=== PATIENT | female | born 2000 | race Caucasian/White ===

== ENCOUNTER 2024-01-25 07:05 | Inpatient (IN) | payer BC, MEDICAID, SELFPAY ==
[2024-01-25] VITALS (54 sets, daily range): BP systolic 103–136; BP diastolic 53–78; PULSE 69–99; RESP 16–18; TEMP 36.2–37.4; O2SAT 98–100; BMI 28.4
--- OUTSIDE RECORDS SUMMARY | 2024-01-25 07:19 | XMS RPT_ITS | CCD ---
Author Name Unknown Address [id number] [place] [address] Organization [facility] Care Team Providers Care Patient Relations Specialist Name Role Phone OLIVIA GREENE M.D. Unavailable Unavailabl e LILIBETH, [facility] Primary Care Unavailable CAR HERNANDEZ Attending Unavailable LILIBETH, [facility] Primary Care Unavailable KUCHTA, GIO Referring Unavailable KUCHTA, GIO Attending Unavailable LILIBETH, [facility] Primary Care Unavailable KUCHTA, GIO Referring Unavailable KUCHTA, GIO Attending Unavailable LILIBETH, [facility] Primary Care Unavailable WOODY CARRANZA Attending Unavailable LILIBETH, [facility] Primary Care Unavailable KUCHTA, GIO Attending Unavailable KUCHTA, GIO Referring Unavailable LILIBETH, [facility] Primary Care Unavailable BALBINA ESQUEDA Attending Unavailable LILIBETH, [facility] Primary Care Unavailable KELLEY MONSON Attending Unavailable LILIBETH, [facility] Primary Care Unavailable KUCHTA, GIO Referring Unavailable KUCHTA, IGO Attending Unavailable LILIBETH, [facility] Primary Care Unavailable WOODY CARRANZA Attending Unavailable LILIBETH, [facility] Primary Care Unavailable KUCHTA, GIO Attending Unavailable KUCHTA, GIO Referring Unavailable LILIBETH, JEANNETTE AIMEE Primary Care Unavailable KUCHTA, GIO Referring Unavailable KUCHTA, GIO Attending Unavailable LILIBETH, [facility] Primary Care Unavailable CECY RILEY Attending Unavailable LILIBETH, [facility] Primary Care Unavailable KUCHTA, GIO Attending Unavailable KUCHTA, GIO Admitting Unavailable LILIBETH, JEANNETTE AIMEE Primary Care Unavailable KUCHTA, GIO Referring Unavailable KUCHTA, GIO Attending Unavailable Jabari BLOOM, Yahir Young Primary Care Provider Yahir Hdz MD Primary Care Provider Yahir Hdz MD R Primary Care Provider Jabari BLOOM, Yahir R Primary Care Provider YAHIR HDZ R Primary Care Unavailable CANDIDA CRUZ Attending Unavailable SELF Referring Unavailable KONTAK, YAHIR R Primary Care Unavailable WARREN PINEDA Attending Unavailable KONTAK, YAHIR R Primary Care Unavailable WISWELL, BALBINA Attending Unavailable KONTAK, YAHIR R Primary Care Unavailable WISWELL, BALBINA Attending Unavailable WISWELL, BALBINA Referring Unavailable KONTAK, YAHIR R Primary Care Unavailable WISWELL, BALBINA Referring Unavailable KONTAK, YAHIR R Primary Care Unavailable KONTAK, YAHIR R Primary Care Unavailable GEORGE SCHWARTZ Referring Unavailable KONTAK, YAHIR R Primary Care Unavailable GEORGE SCHWARTZ Attending Unavailable KONTAK, YAHIR R Primary Care Unavailable DOMINGO BALLESTEROS Attending Unavail able KONTAK, YAHIR R Primary Care Unavailable WISWELL, BALBINA Referring Unavailable TEMITOPE VALE Attending Unavailable KONTAK, YAHIR R Primary Care Unavailable KONTAK, YAHIR R Primary Care Unavailable GEORGE SCHWARTZ Attending Unavailable KONTAK, YAHIR R Primary Care Unavailable WISWELL, BALBINA Referring Unavailable KONTAK, YAHIR R Primary Care Unavailable CHELSI CROWE Attending Unavailable KONTAK, YAHIR R Primary Care Unavailable WISWELL, BALBINA Attending Unavailable KONTAK, YAHIR R Primary Care Unavailable WISWELL, BALBINA Referring Unavailable LEILA MCKINNON Attending Unavailable KONTAK, YAHIR R Primary Care Unavailable WISWELL, BALBINA Referring Unavailable KONTAK, YAHIR R Primary Care Unavailable LEILA MCKINNON Attending Unavailable WISWELL, BALBINA Referring Unavailable KONTAK, YAHIR R Primary Care Unavailable WISWELL, BALBINA Referring Unavailable KONTAK, YAHIR R Primary Care Unavailable KONTAK, YAHIR R Primary Care Unavailable GEORGE SCHWARTZ Referring Unavailable LEILA MCKINNON Referring Unavailable KONTAK, YAHIR R Primary Care Unavailable WISWELL, BALBINA Referring Unavailable KONTAK, YAHIR R Primary Care Unavailable KONTAK, YAHIR R Primary Care Unavailable WISWELL, BALBINA Attending Unavailable WISWELL, BALBINA Referring Unavailable Medications Current Medications Medication Drug Class(es) Dates Sig (Normalized) Sig (Original) amoxicillin 875 mg oral tablet (1 source) Penicillin-class Antibacterial Start: 12-27-2023 End: 01-06-2024 take 1 tablet by mouth every twelve hours amoxicillin (AMOXIL) 875 mg tablet Indications: Pharyngitis, unspecified etiology Take 1 tablet by mouth every 12 hours for 10 days. 20 tablet 0 12/27/2023 01/06/2024 Active Completed/Discontinued Medications Medication Drug Class(es) Dates Sig (Normalized) Sig (Original) aspirin 81 mg delayed release oral tablet (15 sources) Platelet Aggregation Inhibitor, Nonsteroidal Anti-inflammatory Drug Start: 11-12-2023 take 1 tablet by mouth once daily aspirin, enteric coated (ASPIRIN, ENTERIC COATED) 81 mg EC tablet Take 1 tablet by mouth once daily. 100 tablet 2 11/12/2023 Active Problems Active Problems Problem Classification Problem Date Documented Date Episodic/Chronic Adjustment disorders (20 sources) Adjustment disorder with anxious mood; Translations: [Adjustment disorder with anxiety] Onset: 07-02-2022 Chronic Fever of unknown origin (1 source) Fever Onset: 04-19-2018 Episodic Immunizations and screening for infectious disease (1 source) Patient encounter status; Translations: [Encounter for immunization] Episodic Menstrual disorders (1 source) Irregular menstruation, unspecified Onset: 05-17-2018 Chronic Other complications of (7 sources) High risk ; Translations: [Supervision of other high risk pregnancies, third trimester] Onset: 12-01-2023 12-01-2023 Episodic Other complications of (1 source) Uterine size for dates discrepancy; Translations: [Uterine size-date discrepancy, third trimester] 01-07-2024 Episodic Other lower respiratory disease (1 source) Cough; Translations: [Acute cough] 09-03-2023 Episodic Other and delivery including normal (8 sources) Encounter for routine follow-up; Translations: [Encounter for supervision of normal , unspecified, unspecified trimester] Onset: 09-10-2017 07-23-2023 Episodic Other screening for suspected conditions (not mental disorders or infectious disease) (4 sources) Encounter for test, result negative; Translations: [Patient encounter status] Onset: 04-07-2018 07-23-2023 Episodic Other upper respiratory infections (4 sources) Acute sinusitis; Translations: [Acute sinusitis, unspecified] Onset: 09-03-2023 09-03-2023 Episodic Otitis media and related conditions (2 sources) Dysfunction of bilateral eustachian tubes; Translations: [Unspecified Eustachian tube disorder, bilateral] Onset: 12-27-2023 12-27-2023 Episodic Residual codes; unclassified (2 sources) Insomnia; Translations: [Insomnia, unspecified] Episodic Residual codes; unclassified (1 source) Gestation period, 7 weeks; Translations: [Less than 8 weeks gestation of ] 06-19-2023 Episodic Residual codes; unclassified (2 sources) Gestation period, 12 weeks; Translations: [12 weeks gestation of ] 07-23-2023 Episodic Residual codes; unclassified (1 source) Gestation period, 16 weeks; Translations: [16 weeks gestation of ] 08-21-2023 Episodic Residual codes; unclassified (1 source) Gestation period, 21 weeks; Translations: [21 weeks gestation of ] 09-21-2023 Episodic Residual codes; unclassified (1 source) Gestation period, 24 weeks; Translations: [24 weeks gestation of ] 10-14-2023 Episodic Residual codes; unclassified (1 source) Treatment not available; Translations: [Procedure and treatment not carried out for other reasons] 12-27-2023 Episodic Residual codes; unclassified (2 sources) Gestation period, 36 weeks; Translations: [36 weeks gestation of ] 01-07-2024 Episodic Residual codes; unclassified (1 source) 33 weeks gestation of ; Translations: [33 weeks gestation of ] Onset: 01-07-2024 Episodic Residual codes; unclassified (1 source) 31 weeks gestation of ; Translations: [31 weeks gestation of ] Onset: 12-17-2023 Episodic Residual codes; unclassified (1 source) 21 weeks gestation of ; Translations: [21 weeks gestation of ] Onset: 10-14-2023 Episodic Residual codes; unclassified (1 source) Gestation period, 38 weeks; Translations: [38 weeks gestation of ] 01-19-2024 Episodic Unclassified (1 source) Unknown / UNK(Unknown) Onset: 04-19-2018 Unclassified (1 source) 38 weeks gestation of Onset: 02-03-2018 Unclassified (1 source) Encounter for insertion of intrauterine contraceptive device Onset: 04-07-2018 Unclassified (1 source) Scheduled Induction Onset: 02-08-2018 Unclassified (1 source) Maternal care for other known or suspected poor growth, third trimester, not applicable or unspecified Onset: 02-03-2018 Unclassified (1 source) False labor before 37 completed weeks of gestation, third trimester Onset: 11-30-2017 Unclassified (1 source) Acute cough; Translations: [Acute cough] Onset: 09-03-2023 Viral infection (1 source) Disease caused by 2019-nCoV; Translations: [COVID-19] Episodic Past or Other Problems Problem Classification Problem Date Documented Date Episodic/Chronic Abdominal pain (1 source) Left lower quadrant pain Onset: 09-15-2018 Episodic Contraceptive and procreative management (19 sources) Presence of (intrauterine) contraceptive device; Translations: [Patient encounter status] Onset: 09-15-2018 Episodic Other complications of (19 sources) High risk due to history of labor; Translations: [Supervision of with history of pre-term labor, unspecified trimester] Onset: 06-11-2023 06-11-2023 Episodic Residual codes; unclassified (1 source) 16 weeks gestation of ; Translations: [16 weeks gestation of ] Onset: 08-21-2023 Episodic Residual codes; unclassified (1 source) 8 weeks gestation of ; Translations: [8 weeks gestation of ] Onset: 06-18-2023 Episodic Results Test Name Value Interpretation Reference Range Facil ity Vital Signs Date Time Vital Sign Value Performing Clinician García ibrahim 01-19-2024 11:53-0500 Body weight 83.73 kg Leila Mckinnon MD Work Phone: [facility] 01-19-2024 11:53-0500 Diastolic blood pressure 70 mm[Hg] Leila Mckinnon MD Work Phone: [facility] 01-19-2024 11:53-0500 Systolic blood pressure 106 mm[Hg] Leila Mckinnon MD Work Phone: [facility] 01-07-2024 14:27-0500 Body weight 84.82 kg Chelsi Crowe APRN.CNM Work Phone: [facility] 01-07-2024 14:27-0500 Diastolic blood pressure 64 mm[Hg] Chelsi Crowe APRN.CNM Work Phone: [facility] 01-07-2024 14:27-0500 Systolic blood pressure 100 mm[Hg] Chelsi Crowe APRN.CNM Work Phone: [facility] 12-27-2023 15:47-0500 Body temperature 98.2 [degF] Warren Pineda DO Work Phone: [facility] 12-27-2023 15:47-0500 Body weight 82.56 kg Warren Pineda DO Work Phone: [facility] 12-27-2023 15:47-0500 Diastolic blood pressure 64 mm[Hg] Warren Pineda DO Work Phone: [facility] 12-27-2023 15:47-0500 Heart rate 86 /min Warren Pineda DO Work Phone: [facility] 12-27-2023 15:47-0500 Respiratory rate 16 /min Warren Pineda DO Work Phone: [facility] 12-27-2023 15:47-0500 SaO2% (BldA) [Mass fraction] 100 % Warrenedyta Pineda DO Work Phone: [facility] 12-27-2023 15:47-0500 Systolic blood pressure 124 mm[Hg] Warren Pineda DO Work Phone: [facility] 10-14-2023 15:41-0500 Body weight 81.65 kg George Schwartz APRN.CNM Work Phone: [facility] 10-14-2023 15:41-0500 Diastolic blood pressure 62 mm[Hg] George Schwartz APRN.CNM Work Phone: [facility] 10-14-2023 15:41-0500 Systolic blood pressure 108 mm[Hg] George Schwartz APRN.CNM Work Phone: [facility] 09-21-2023 10:30-0400 Body weight 82.56 kg Balbina Ghosh MD Work Phone: [facility] 09-21-2023 10:30-0400 Diastolic blood pressure 72 mm[Hg] Balbina Ghosh MD Work Phone: [facility] 09-21-2023 10:30-0400 Systolic blood pressure 120 mm[Hg] Balbina Ghosh MD Work Phone: [facility] 09-03-2023 09:22-0400 Body temperature 97.3 [degF] Candidaofe Cruz SCHOOL ADMINISTRATOR.SUPERVISOR TELEPHONE ANSWERING SERVICE Work Phone: [facility] 09-03-2023 09:22-0400 Body weight 81.19 kg Candidaofe Cruz SCHOOL ADMINISTRATOR.SUPERVISOR TELEPHONE ANSWERING SERVICE Work Phone: [facility] 09-03-2023 09:22-0400 Diastolic blood pressure 68 mm[Hg] Candidaofe Cruz SCHOOL ADMINISTRATOR.SUPERVISOR TELEPHONE ANSWERING SERVICE Work Phone: [facility] 09-03-2023 09:22-0400 Heart rate 98 /min Candida Cruz SCHOOL ADMINISTRATOR.SUPERVISOR TELEPHONE ANSWERING SERVICE Work Phone: [facility] 09-03-2023 09:22-0400 Respiratory rate 18 /min Candida Cruz SCHOOL ADMINISTRATOR.SUPERVISOR TELEPHONE ANSWERING SERVICE Work Phone: [facility] 09-03-2023 09:22-0400 SaO2% (BldA) [Mass fraction] 98 % Candidaofe Cruz SCHOOL ADMINISTRATOR.SUPERVISOR TELEPHONE ANSWERING SERVICE Work Phone: [facility] 09-03-2023 09:22-0400 Systolic blood pressure 143 mm[Hg] Candidaofe Cruz SCHOOL ADMINISTRATOR.SUPERVISOR TELEPHONE ANSWERING SERVICE Work Phone: [facility] 08-21-2023 10:39-0400 Body weight 80.74 kg Leila Mckinnon MD Work Phone: [facility] 08-21-2023 10:39-0400 Diastolic blood pressure 70 mm[Hg] Leila Mckinnon MD Work Phone: [facility] 08-21-2023 10:39-0400 Systolic blood pressure 112 mm[Hg] Leila Mckinnon MD Work Phone: [facility] 07-23-2023 10:11-0400 Body weight 82.92 kg Leila Mckinnon MD Work Phone: [facility] 07-23-2023 10:11-0400 Diastolic blood pressure 82 mm[Hg] Leila Mckinnon MD Work Phone: [facility] 07-23-2023 10:11-0400 Systolic blood pressure 122 mm[Hg] Leila Mckinnon MD Work Phone: [facility] 09-23-2022 13:57-0400 Body weight 83.92 kg Leila Mckinnon MD Work Phone: [facility] 09-23-2022 13:57-0400 Diastolic blood pressure 70 mm[Hg] Leila Mckinnon MD Work Phone: [facility] 09-23-2022 13:57-0400 Systolic blood pressure 122 mm[Hg] Leila Mckinnon MD Work Phone: [facility] 08-12-2022 13:17-0400 Body height 172.1 cm Polly Jin SCHOOL ADMINISTRATOR.SUPERVISOR TELEPHONE ANSWERING SERVICE Work Phone: [facility] 08-12-2022 13:17-0400 Body weight 79.83 kg Polly Jin SCHOOL ADMINISTRATOR.SUPERVISOR TELEPHONE ANSWERING SERVICE Work Phone: [facility] 08-12-2022 13:17-0400 Diastolic blood pressure 80 mm[Hg] Polly Jin SCHOOL ADMINISTRATOR.SUPERVISOR TELEPHONE ANSWERING SERVICE Work Phone: [facility] 08-12-2022 13:17-0400 Heart rate 62 /min Polly Jin SCHOOL ADMINISTRATOR.SUPERVISOR TELEPHONE ANSWERING SERVICE Work Phone: [facility] 08-12-2022 13:17-0400 Systolic blood pressure 113 mm[Hg] Polly Jin SCHOOL ADMINISTRATOR.SUPERVISOR TELEPHONE ANSWERING SERVICE Work Phone: [facility] 07-02-2022 15:27-0400 Body height 172.1 cm Polly Jin SCHOOL ADMINISTRATOR.SUPERVISOR TELEPHONE ANSWERING SERVICE Work Phone: [facility] 07-02-2022 15:27-0400 Body weight 80.29 kg Polly Jin SCHOOL ADMINISTRATOR.SUPERVISOR TELEPHONE ANSWERING SERVICE Work Phone: [facility] 07-02-2022 15:27-0400 Diastolic blood pressure 73 mm[Hg] Polly Jin SCHOOL ADMINISTRATOR.SUPERVISOR TELEPHONE ANSWERING SERVICE Work Phone: [facility] 07-02-2022 15:27-0400 Heart rate 93 /min Polly Jin SCHOOL ADMINISTRATOR.SUPERVISOR TELEPHONE ANSWERING SERVICE Work Phone: [facility] 07-02-2022 15:27-0400 Systolic blood pressure 123 mm[Hg] Polly Jin SCHOOL ADMINISTRATOR.SUPERVISOR TELEPHONE ANSWERING SERVICE Work Phone: [facility] 06-24-2022 15:03-0400 Body height 172.1 cm Leila Mckinnon MD Work Phone: [facility] 06-24-2022 15:03-0400 Body weight 79.38 kg Leila Mckinnon MD Work Phone: [facility] 06-24-2022 15:03-0400 Diastolic blood pressure 70 mm[Hg] Leila Mckinnon MD Work Phone: [facility] 06-24-2022 15:03-0400 Systolic blood pressure 108 mm[Hg] Leila Mckinnon MD Work Phone: [facility] Encounters Encounter Date Encounter Type Care Provider Facility Start: 01-19-2024 End: 01-19-2024 Patient encounter procedure Leila Mckinnon MD Work Phone: OB/Gynecology Procedures Date Procedure Procedure Detail Performing Clinician Start: 01-19-2024 URINE OB DIP B/O Leila Mckinnon MD Work Phone: Start: 01-07-2024 URINE OB DIP B/O Alea Crowe SCHOOL ADMINISTRATOR.CNM Work Phone: Start: 01-07-2024 Us preg uterus after 1st trimest 11/23 gestation Balbina Ghosh MD Work Phone: Start: 09-21-2023 URINE OB DIP B/O Balbina ellison MD Work Phone: Start: 09-03-2023 COVID & INFLUENZA A/ B & RSV NAAT, ROUTINE Candida Cruz SCHOOL ADMINISTRATOR.SUPERVISOR TELEPHONE ANSWERING SERVICE Work Phone: Start: 09-03-2023 COVID AND INFLUENZA A/B & RSV NAAT, EXPEDITED Candida Cruz SCHOOL ADMINISTRATOR.SUPERVISOR TELEPHONE ANSWERING SERVICE Work Phone: Start: 08-21-2023 URINE OB DIP B/O Leila Mckinnon MD Work Phone: Start: 07-23-2023 Antibody screen YAHIR HDZ Plan of Treatment Date Care Activity Detail Author Start: 11-11-2033 Urine microalbumin profile DTaP,Tdap,Td Vaccine (9 - Td or Tdap) [facility] Start: 11-27-2027 Urine microalbumin profile [facility] Start: 06-18-2026 PAP TESTING PAP TESTING [facility] Start: 06-18-2026 Screening for malignant neoplasm of cervix Pap Testing [facility] Start: 12-06-2023 RSV Vaccine (1 - Risk 1-dose series) RSV Vaccine (1 - Risk 1-dose series) [facility] Start: 11-23-2023 Depression Assessment Depression Assessment [facility] Start: 10-14-2023 End: 01-13-2024 CBC W Auto Differential panel - Blood CBC + DIFF Lab Routine Encounter for supervision of normal first in second trimester Expected: 10/14/2023, Expires: 01/13/2024 [facility] Work Phone: Immunizations Immunization Date Immunization Notes Care Provider Elizabeth melendez 11-11-2023 tetanus toxoid, redu daphney diphtheria toxoid, and acellular pertussis vaccine, adsorbed Dru Devries SCHOOL ADMINISTRATOR.SUPERVISOR TELEPHONE ANSWERING SERVICE Work Phone: [facility] 08-12-2022 influenza, injectabl e, quadrivalent, contains preservative Polly Jin SCHOOL ADMINISTRATOR.SUPERVISOR TELEPHONE ANSWERING SERVICE Work Phone: [facility] 08-12-2022 influenza virus vacc ine, unspecified formulation Leila Mckinnon MD Work Phone: [facility] 11-27-2017 tetanus toxoid, redu daphney diphtheria toxoid, and acellular pertussis vaccine, adsorbed Leila Mckinnon MD Work Phone: [facility] 08-18-2017 influenza, seasonal, injectable, preservative free Leila Mckinnon MD Work Phone: [facility] 09-23-2016 meningococcal polysaccharide (groups A, C, Y and W-135) diphtheria toxoid conjugate vaccine (MCV4P) Leila Mckinnon MD Work Phone: [facility] 07-07-2011 diphtheria, tetanus toxoids and acellular pertussis vaccine Leila Mckinnon MD Work Phone: [facility] 07-07-2011 tetanus toxoid, redu daphney diphtheria toxoid, and acellular pertussis vaccine, adsorbed Leila Mckinnon MD Work Phone: [facility] 09-27-2009 novel Influenza-H1N1 -, live virus for nasal administration Leila Mckinnon MD Work Phone: [facility] 07-11-2004 diphtheria, tetanus toxoids and acellular pertussis vaccine Leila Mckinnon MD Work Phone: [facility] 07-11-2004 measles, mumps and rubella virus vaccine Leila Mckinnon MD Work Phone: [facility] 07-11-2004 poliovirus vaccine, inactivated Leila Mckinnon MD Work Phone: [facility] 12-19-1999 diphtheria, tetanus toxoids and acellular pertussis vaccine Leila Mckinnon MD Work Phone: [facility] 12-19-1999 diphtheria, tetanus toxoids and acellular pertussis vaccine, unspecified formulation Leila Mckinnon MD Work Phone: [facility] 12-19-1999 haemophilus influenz ae type b conjugate and Hepatitis B vaccine Leila Mckinnon MD Work Phone: [facility] 12-19-1999 haemophilus influenz ae type b vaccine, HbOC conjugate Leila Mckinnon MD Work Phone: [facility] 12-19-1999 hepatitis B vaccine, pediatric or pediatric/adolescent dosage Leila Mckinnon MD Work Phone: [facility] 12-19-1999 measles, mumps and rubella virus vaccine Leila Mckinnon MD Work Phone: [facility] 12-19-1999 poliovirus vaccine, inactivated Leila Mckinnon MD Work Phone: [facility] 12-19-1999 trivalent poliovirus vaccine, live, oral Leila Mckinnon MD Work Phone: [facility] 12-19-1999 varicella virus vaccine Anne Marie Mckinnon MD Work Phone: [facility] 06-11-1999 diphtheria, tetanus toxoids and acellular pertussis vaccine Leila Mckinnon MD Work Phone: [facility] 06-11-1999 diphtheria, tetanus toxoids and acellular pertussis vaccine, unspecified formulation Leila Mckinnon MD Work Phone: [facility] 06-11-1999 haemophilus influenz ae type b vaccine, HbOC conjugate Leila Mckinnon MD Work Phone: [facility] 06-11-1999 poliovirus vaccine, inactivated Leila Mckinnon MD Work Phone: [facility] 1998 diphtheria, tetanus toxoids and acellular pertussis vaccine Leila Mckinnon MD Work Phone: [facility] 1998 diphtheria, tetanus toxoids and acellular pertussis vaccine, unspecified formulation Leila Mckinnon MD Work Phone: [facility] 1998 haemophilus influenz ae type b vaccine, HbOC conjugate Leila Mckinnon MD Work Phone: [facility] 1998 hepatitis B vaccine, pediatric or pediatric/adolescent dosage Leila Mckinnon MD Work Phone: [facility] 1998 poliovirus vaccine, inactivated Leila Mckinnon MD Work Phone: [facility] 1998 hepatitis B vaccine, pediatric or pediatric/adolescent dosage Leila Mckinnon MD Work Phone: [facility] Payers Date Payer Category Payer Medicaid [id number] 2019 Unknown SOLANGE ESCOBEDO BS FEP PPO [id number] 2019-Present [phone] [address] [place] [address] PPO [id number] 2019 Unknown [id number] 2019 Unknown [id number] 2018 Medicaid [facility] [facility] MEDICAID [id number] 2018-Present [phone] [address] [place] [address] Medicaid [id number] 2018 Medicaid [id number] 1998 Unknown [id number] 1998 Unknown [id number] 1998 Unknown [id number] 1998 Unknown [id number] 1998 Unknown [id number] 1998 Unknown [id number] 1998 Unknown [id number] 1998 Unknown [id number] 1998 Unknown [id number] 1998 Unknown [id number] 1998 Unknown [id number] 1998 Unknown [id number] 2000 Unknown [id number] Unknown [id number] Unknown [id number] Social History Date Type Detail Facility Start: 09-28-2020 End: 07-02-2022 Tobacco smoking status NHIS Never smoked tobacco [facility] Start: 09-28-2020 End: 07-02-2022 Tobacco use and exposure Smokeless tobacco non-user [facility] Start: 06-24-2022 End: 09-23-2022 Alcohol intake Current drinker of alcohol (finding) [facility] Start: 05-22-2022 End: 12-15-2022 History SDOH Alcohol Frequency 3 [facility] Start: 05-22-2022 End: 12-15-2022 History SDOH Alcohol Std Drinks 1 [facility] Start: 05-22-2022 End: 12-15-2022 History SDOH Alcohol Binge 2 [facility] geoffrey Start: 06-24-2022 History SDOH Alcohol Comment not very often [facility] Start: 05-22-2022 End: 12-15-2022 History SDOH Social Connections Phone 5 [facility] Start: 05-22-2022 End: 12-15-2022 History SDOH Social Connections Get Together 4 [facility] Start: 05-22-2022 End: 12-15-2022 History SDOH Social Connections Buddhism 98 [facility] Start: 2000 Sex Assigned At Female [facility] Start: 06-14-2022 End: 09-23-2022 Exposure to SARS-CoV-2 (event) Not sure [facility] Start: 06-11-2023 End: 01-21-2024 Alcohol intake Ex-drinker (finding) [facility] Start: 12-14-2022 End: 06-11-2023 History of Social function [facility]rey Start: 12-14-2022 End: 06-11-2023 Social connection and isolation panel [facility] Do you belong to any clubs or organizations such as zoroastrian groups, unions, fraternal or athletic groups, or school groups? No [facility] How often do you att end meetings of the clubs or organizations you belong to? Patient refused [facility] Are you now , , , , never or living with a partner? [facility] How often to you hav e a drink containing alcohol? 2-4 times a month [facility] How many standard dr inks containing alcohol do you have on a typical day? 1 or 2 [facility] How often do you hav e 6 or more drinks on 1 occasion? Less than monthly [facility] How hard is it for y ou to pay for the very basics like food, housing, medical care, and heating Not very hard [facility] Do you feel stress - tense, restless, nervous, or anxious, or unable to sleep at night because your mind is troubled all the time - these days [OSQ] Rather much [facility] (I/We) worried wheth er (my/our) food would run out before (I/we) got money to buy more. Never true [facility] Start: 06-11-2023 Education 15 [facility] Start: 05-04-2023 [facility] Start: 05-22-2022 Gender identity Identifies as female gender (finding) [facility] Goals Date Patient Goal Desired Activity /State Personal health goal Clinical Notes 12-03-2021 to 01-21-2024 Quick Notes - Leila Mckinnon MD - 01/21/2024 12:37 PM ESTPatient InstructionsPrenatal Quick Notes - Chelsi Crowe APRN.[facility] - 01/07/2024 3:21 PM ESTPatient InstructionsPatient Instructions Note Date & Type Note Facility 01-21-2024 Miscellaneous Notes KJ - VB No. LOF No. CTXS Yes - irregular. Movement: present. Other c/o: No. Medication list reviewed. Physical Exam See Flow Sheet Gen: no accute distress, well appearing Abd: soft, nontender, gravid A/P 38w4d Estimated Date of Delivery: 01/31/24 Induction - discussed R/B/A and elective IOL scheduled per patient request. Labor precautions reviewed, Kick counts reviewed. Leila Mckinnon MD documented in this encounter [facility] 01-19-2024 Instructions Rasheeda Nance MA - 01/19/2024 11:51 AM EST SEQUENTIAL SCREENINGS The [facility] offers sequential screenings for women who are interested in screenings for chromosomal abnormalities and certain defects during a . The sequential screen combines ultrasound and blood tests to determine the risk of chromosomal abnormalities, including Down's Syndrome (Trisomy 21) and Trisomy 18, as well as open neural tube defects including spina bifida. Ultrasound examination is performed between 11 weeks and 13 weeks gestational age. Blood tests are drawn after the ultrasound and again later in the between 15 and 21 weeks gestational age. Please let your physician know if you are interested in this testing. It will require an appointment with our shift lab technician. This is not an ultrasound performed by a physician in our office during a routine visit. SIGNS AND SYMPTOMS OF LABOR 1. Contractions every 10 minutes or more often 2. Clear, pink, or brownish fluid (water) leaking from vagina 3. Feeling that baby is pushing down, pressure 4. Low, dull backache 5. Cramps that feel like a period 6. Cramps with or without diarrhea If you notice any of the above symptoms, contact our office at [phone] and ask to speak with a nurse. After hours, you can call doctors registry at [phone] OR call [facility] at [phone] and ask to have the doctor graduation coach paged. If you consider this an emergency, dial 7-1-2 or go to your nearest emergency department. NEED HELP? Are you dealing with a violent or abusive relationship? Are you a victim of rape or sexual assult? Call [facility] ([facility] 24 hour Crisis Hotline: 394.409.1260 or 750-530-0630. MANUAL Your Guide to a Healthy manual is now on-line. Visit [email or web address] to download your free copy documented in this encounter [facility] 01-07-2024 Miscellaneous Notes Candelaria Riley is a 23 year old female who presents at 36w4d for a routine visit. Just completed growth US- awaiting final results. EFW 17%, FRANCI normal at 9. Good movement. Occasional contractions. Denies headache, visual changes, chest pain, shortness of breath, vaginal bleeding, leakage of fluid, or dysuria. Feeling well, no complaints. Requesting CE today - because nervous due to history of labor. Size appropriate for dates. 2 lbs TWG. Vertex position CE /2 ASSESSMENT/PLAN: 1. Uterine size date discrepancy, third trimester - ICD9: 649.63, ICD10: O26.843 (primary diagnosis) 2. 36 weeks gestation of - ICD9: V22.2, ICD10: Z3A.36 3. Supervision of other high risk pregnancies, third trimester - ICD9: V23.89, ICD10: O09.893 - GBS today - MOD- desires elective induction at 39 weeks - PTL precautions reviewed. RTC in 1 week Chelsi Crowe APRN.CNM documented in this encounter [facility] 01-07-2024 Instructions Michael Samano Cma - 01/07/2024 2:26 PM EST SEQUENTIAL SCREENINGS The [facility] offers sequential screenings for women who are interested in screenings for chromosomal abnormalities and certain defects during a . The sequential screen combines ultrasound and blood tests to determine the risk of chromosomal abnormalities, including Down's Syndrome (Trisomy 21) and Trisomy 18, as well as open neural tube defects including spina bifida. Ultrasound examination is performed between 11 weeks and 13 weeks gestational age. Blood tests are drawn after the ultrasound and again later in the between 15 and 21 weeks gestational age. Please let your physician know if you are interested in this testing. It will require an appointment with our shift lab technician. This is not an ultrasound performed by a physician in our office during a routine visit. SIGNS AND SYMPTOMS OF LABOR 1. Contractions every 10 minutes or more often 2. Clear, pink, or brownish fluid (water) leaking from vagina 3. Feeling that baby is pushing down, pressure 4. Low, dull backache 5. Cramps that feel like a period 6. Cramps with or without diarrhea If you notice any of the above symptoms, contact our office at [phone] and ask to speak with a nurse. After hours, you can call doctors registry at [phone] OR call [facility] at [phone] and ask to have the doctor graduation coach paged. If you consider this an emergency, dial 9-8 or go to your nearest emergency department. NEED HELP? Are you dealing with a violent or abusive relationship? Are you a victim of rape or sexual assult? Call [facility] ([place]) 24 hour Crisis Hotline: 531.182.2618 or 043-777-1140. MANUAL Your Guide to a Healthy manual is now on-line. Visit [email or web address] to download your free copy documented in this encounter [facility] 12-27-2023 Note HNO ID: [id number] Author: WARREN PINEDA, DO Service: ? Author Type: Physician Type: Progress Notes Filed: 12/27/2023 15:58 Note Text: Candelaria Riley is a 23 year old female who presents with Ear Problem (Left ear and jaw pain started yesterday, pt is 35 weeks ). HPI: This 23-year-old white female who presents to clinic with left ear pain she gets sharp pain and pressure and achy feeling. No real history of ear infections. She has a little low-grade fever at home. No other complaint. Patient is 35 weeks . ALLERGIES No Known Allergies Current Outpatient Medications Medication Sig Dispense Refill aspirin, enteric coated (ASPIRIN, ENTERIC COATED) 81 mg EC tablet Take 1 tablet by mouth once daily. 100 tablet 2 folic acid 400 mcg tablet Take 1 tablet by mouth once daily. 100 tablet 0 ferrous sulfate (SLOW FE) 137 mg (45 mg iron) TbER Take 1 tablet by mouth every other day. 30 tablet 1 melatonin 3 mg tablet Take 1 tablet by mouth daily at bedtime. 60 tablet 3 Magnesium Oxide 420 mg tab Take 1 tablet by mouth daily at bedtime. 100 tablet 2 Ferrous Sulfate (SLOW FE) 142 mg (45 mg iron) TbER Take 3 tablets by mouth once daily. 60 tablet 5 ondansetron (ZOFRAN) 4 mg tablet Take 1 tablet by mouth every 8 hours as needed for nausea/vomiting. 30 tablet 1 No current facility-administered medications for this visit. ROS: refer to hpi BP 124/64 Pulse 86 Temp 98.2 Resp 16 Wt 182 lb (82.6kg) SpO2 100% LMP 04/20/2023 PHYSICAL EXAM HEENT is within normal limits except for fluid behind the tympanic membranes bilaterally with the left being greater than the right. There is also erythremia of the posterior pharynx and tonsillar region but more so on the left than on the right and bilateral adenopathy. All else appears to be normal. Heart regular rate and rhythm without murmur, S3 or S4. Lungs clear to auscultation bilaterally without rales, rhonchi or wheezing. Abdomen positive bowel sounds x 4 quadrants. Negative masses, tenderness or organomegaly on palpation. Extremities negative clubbing, cyanosis or edema. Negative deformities. ASSESSMENT/PLAN: 1. Pharyngitis, unspecified etiology - ICD9: 462, ICD10: J02.9 (primary diagnosis) - AMOXICILLIN 875 MG TABLET 2. Eustachian tube dysfunction, bilateral - ICD9: 381.81, ICD10: H69.93 Patient is placed on amoxicillin. She is told to draft roller picker Mucinex 1200 mg. Take 1 twice a day for 7 days. Increase water and decrease dairy to make sure it more effective. Be sure its only her GENERAL CLAIMS AGENT's list of approved medicines. Tylenol for fever or pain. Return to clinic for any issues. This note was partially generated using [employer] voice recognition system, and there may be some incorrect words, spellings, and punctuation that were not noted in checking the note before saving. Warren Pineda [facility] 12-27-2023 Note HNO ID: [id number] Author: DRU DEVRIES APRN.SUPERVISOR TELEPHONE ANSWERING SERVICE Service: ? Author Type: Nurse Practitioner Type: Progress Notes Filed: 12/27/2023 15:38 Note Text: I have communicated my name and active licensure. The patient's identity and physical location were verified at the time of this visit. Either the patient or their legal claims service representative has been informed of the risks and benefits of -- and alternatives to -- treatment through a remote evaluation and consents to proceed with the evaluation remotely. Telemedicine Visit - Distance Health Virtual Visit Note Patient seen on [employer] Video Visit platform. Location of patient: [place] Yahir Hdz MD History of Present Illness Candelaria Riley is a 23 year old year old female who presents with c/o left sided ear, jaw, and tooth pain for the past 24 hours; states ear is an excruciating pain. Reports she has tried Tylenol, ibuprofen, ice, heat with little relief. Denies chest pain, neck pain, arm pain, new SOB, or any other symptoms. Due to limitations of [facility] and inability to visualize left TM, patient referred for in-person evaluation. Appointment canceled. [facility] 12-27-2023 Instructions Warren Pineda DO - 12/27/2023 3:55 PM EST supervisor coin machine Mucinex 1200 MG. Take one twice a day for 7 days. Drink lots of water, juice or gatorade and decrease all dairy to make it work better. Tylenol for fever or pain. documented in this encounter [facility] 12-27-2023 History of Presen t illness Narrative Candelaria Riley is a 23 year old female who presents with Ear Problem (Left ear and jaw pain started yesterday, pt is 35 weeks ). HPI: This 23-year-old white female who presents to clinic with left ear pain she gets sharp pain and pressure and achy feeling. No real history of ear infections. She has a little low-grade fever at home. No other complaint. Patient is 35 weeks . ALLERGIES No Known Allergies Current Outpatient Medications Medication Sig Dispense Refill aspirin, enteric coated (ASPIRIN, ENTERIC COATED) 81 mg EC tablet Take 1 tablet by mouth once daily. 100 tablet 2 folic acid 400 mcg tablet Take 1 tablet by mouth once daily. 100 tablet 0 ferrous sulfate (SLOW FE) 137 mg (45 mg iron) TbER Take 1 tablet by mouth every other day. 30 tablet 1 melatonin 3 mg tablet Take 1 tablet by mouth daily at bedtime. 60 tablet 3 Magnesium Oxide 420 mg tab Take 1 tablet by mouth daily at bedtime. 100 tablet 2 Ferrous Sulfate (SLOW FE) 142 mg (45 mg iron) TbER Take 3 tablets by mouth once daily. 60 tablet 5 ondansetron (ZOFRAN) 4 mg tablet Take 1 tablet by mouth every 8 hours as needed for nausea/vomiting. 30 tablet 1 No current facility-administered medications for this visit. ROS: refer to hpi BP 124/64 Pulse 86 Temp 98.2 Resp 16 Wt 182 lb (82.6kg) SpO2 100% LMP 04/20/2023 PHYSICAL EXAM HEENT is within normal limits except for fluid behind the tympanic membranes bilaterally with the left being greater than the right. There is also erythremia of the posterior pharynx and tonsillar region but more so on the left than on the right and bilateral adenopathy. All else appears to be normal. Heart regular rate and rhythm without murmur, S3 or S4. Lungs clear to auscultation bilaterally without rales, rhonchi or wheezing. Abdomen positive bowel sounds x 4 quadrants. Negative masses, tenderness or organomegaly on palpation. Extremities negative clubbing, cyanosis or edema. Negative deformities. ASSESSMENT/PLAN: 1. Pharyngitis, unspecified etiology - ICD9: 462, ICD10: J02.9 (primary diagnosis) - AMOXICILLIN 875 MG TABLET 2. Eustachian tube dysfunction, bilateral - ICD9: 381.81, ICD10: H69.93 Patient is placed on amoxicillin. She is told to draft roller picker Mucinex 1200 mg. Take 1 twice a day for 7 days. Increase water and decrease dairy to make sure it more effective. Be sure its only her GENERAL CLAIMS AGENT's list of approved medicines. Tylenol for fever or pain. Return to clinic for any issues. This note was partially generated using [employer] voice recognition system, and there may be some incorrect words, spellings, and punctuation that were not noted in checking the note before saving. Warren Pineda DO documented in this encounter [facility] 12-27-2023 History of Presen t illness Narrative I have communicated my name and active licensure. The patient's identity and physical location were verified at the time of this visit. Either the patient or their legal claims service representative has been informed of the risks and benefits of -- and alternatives to -- treatment through a remote evaluation and consents to proceed with the evaluation remotely. Telemedicine Visit - Distance Health Virtual Visit Note Patient seen on [employer] Video Visit platform. Location of patient: [place] Yahir Hdz MD History of Present Illness Candelaria Riley is a 23 year old year old female who presents with c/o left sided ear, jaw, and tooth pain for the past 24 hours; states ear is an excruciating pain. Reports she has tried Tylenol, ibuprofen, ice, heat with little relief. Denies chest pain, neck pain, arm pain, new SOB, or any other symptoms. Due to limitations of [facility] and inability to visualize left TM, patient referred for in-person evaluation. Appointment canceled. documented in this encounter [facility] 11-11-2023 Note HNO ID: [id number] Author: Amy Antoine Ma Service: ? Author Type: ? Type: Progress Notes Filed: 11/11/2023 10:54 AM Note Text: Patient identified by name and date of . Candelaria Riley presents today for a vaccination of Tdap. Patient denies an allergy to latex: yes Patient denies a severe (life-threatening) allergy to a previous dose of Tdap, DTP, DTaP, DT or Td vaccine. Yes Patient denies history of epilepsy or neurological problems: Yes Patient is afebrile and denies being moderately or severely ill: Yes Patient denies history of Guillain-Galvin Syndrome (a severe paralytic illness): Yes Tdap Adacel injection was given without incident. See immunizations for details of immunizations administered today. VIS sheet provided: Yes Provider Vasile was present in office at time of injection. Amy Antoine Ma [facility] 10-30-2023 Miscellaneous Notes Left detailed message on pharmacy's voicemail. Louann Allan, RN Yes, that is fine. Summer Harrell APRN.CNP Pharmacy called asking if they can change the Magnesium to 400 MG instead of the 420 MG written. They will need to order it if you want patient to have the 420 MG. Louann Allan, RN documented in this encounter [facility] 10-29-2023 Miscellaneous Notes She can try melatonin or benadryl. Also can take a magnesium supplement at bedtime. Leila Mckinnon MD documented in this encounter [facility] 10-14-2023 Miscellaneous Notes JONATHAN-S: Candelaria Riley is a 22 year old female who presents at 24w3d with TOMMY:01/31/2024, by Ultrasound for a routine visit. Denies headache, visual changes, chest pain, shortness of breath, vaginal bleeding, leakage of fluid, or dysuria. Feeling well, no complaints. O: See flow sheet Gen: No apparent distress Abd: Gravid, non tender S=D, TWG-5 lb ASSESSMENT/PLAN: 1. Encounter for supervision of normal third in second trimester 2. 24 weeks gestation of 3. History PTL at 29 wks P: 1) PTL precautions reviewed and when to call 2) US rescheduled for Oct 20 at 11:30 2) RTO at 28 weeks for 1 hr GCT, Tdap, CBC TEACHING STUDIO RECEPTIONIST NOTE OF PERSONAL INVOLVEMENT IN CARE: I have interviewed the patient and updated the midwifery student's PFS history, and ROS as necessary. I have re-performed the HPI, Physical Examination, Assessment and Plan. SLOANE Barry APRN.CNM documented in this encounter [facility] 10-14-2023 Michael Mcfarland Cma - 10/14/2023 4:04 PM EST SEQUENTIAL SCREENINGS The [facility] offers sequential screenings for women who are interested in screenings for chromosomal abnormalities and certain defects during a . The sequential screen combines ultrasound and blood tests to determine the risk of chromosomal abnormalities, including Down's Syndrome (Trisomy 21) and Trisomy 18, as well as open neural tube defects including spina bifida. Ultrasound examination is performed between 11 weeks and 13 weeks gestational age. Blood tests are drawn after the ultrasound and again later in the between 15 and 21 weeks gestational age. Please let your physician know if you are interested in this testing. It will require an appointment with our shift lab technician. This is not an ultrasound performed by a physician in our office during a routine visit. SIGNS AND SYMPTOMS OF LABOR 1. Contractions every 10 minutes or more often 2. Clear, pink, or brownish fluid (water) leaking from vagina 3. Feeling that baby is pushing down, pressure 4. Low, dull backache 5. Cramps that feel like a period 6. Cramps with or without diarrhea If you notice any of the above symptoms, contact our office at [phone] and ask to speak with a nurse. After hours, you can call doctors registry at [phone] OR call [facility] at [phone] and ask to have the doctor graduation coach paged. If you consider this an emergency, dial 2-4-4 or go to your nearest emergency department. NEED HELP? Are you dealing with a violent or abusive relationship? Are you a victim of rape or sexual assult? Call [facility] ([place]) 24 hour Crisis Hotline: 312.793.3665 or 875-289-7578. MANUAL Your Guide to a Healthy manual is now on-line. Visit [email or web address] to download your free copy documented in this encounter [facility] 09-21-2023 Miscellaneous Notes SW- No pain, vb, lof. +FM PE: Gen- NAD, well appearing Abd- Soft, gravid See flowsheet A/p 21 wk gestation - Anatomy US today and final report is pending. Pt reports incomplete anatomy US so follow up ordered - Discussed upcoming expectations and questions answered - Declines flu shot Balbina Wiswell, DO documented in this encounter [facility] 09-21-2023 Instructions Rasheeda Nance MA - 09/21/2023 9:39 AM EDT SEQUENTIAL SCREENINGS The [facility] offers sequential screenings for women who are interested in screenings for chromosomal abnormalities and certain defects during a . The sequential screen combines ultrasound and blood tests to determine the risk of chromosomal abnormalities, including Down's Syndrome (Trisomy 21) and Trisomy 18, as well as open neural tube defects including spina bifida. Ultrasound examination is performed between 11 weeks and 13 weeks gestational age. Blood tests are drawn after the ultrasound and again later in the between 15 and 21 weeks gestational age. Please let your physician know if you are interested in this testing. It will require an appointment with our shift lab technician. This is not an ultrasound performed by a physician in our office during a routine visit. SIGNS AND SYMPTOMS OF LABOR 1. Contractions every 10 minutes or more often 2. Clear, pink, or brownish fluid (water) leaking from vagina 3. Feeling that baby is pushing down, pressure 4. Low, dull backache 5. Cramps that feel like a period 6. Cramps with or without diarrhea If you notice any of the above symptoms, contact our office at [phone] and ask to speak with a nurse. After hours, you can call doctors registry at [phone] OR call [facility] at [phone] and ask to have the doctor graduation coach paged. If you consider this an emergency, dial 9-2 or go to your nearest emergency department. NEED HELP? Are you dealing with a violent or abusive relationship? Are you a victim of rape or sexual assult? Call [facility] ([facility] 24 hour Crisis Hotline: 985.576.9975 or 633-443-8882. MANUAL Your Guide to a Healthy manual is now on-line. [email or web address] to download your free copy documented in this encounter [facility] 09-04-2023 Miscellaneous Notes I discussed negative lab results with patient at this time. Patient voiced understanding. documented in this encounter [facility] [facility] 09-03-2023 Note HNO ID: [id number] Author: Candida Cruz APRN.VENKAT Service: ? Author Type: Nurse Practitioner Type: Progress Notes Filed: 09/03/2023 9:56 AM Note Text: Candelaria Riley is a 22 year old female who presents with Cough (Cough, sore throat, congestion x 2 days ). HPI: 2-year-old female patient presents with a frontal headache, congestion, sore throat, intermittent shortness of breath, fatigue, nonproductive cough, stuffy/runny nose that is productive of green mucus and ear pain started 1 to 2 days ago. She denies fever, any changes to her nausea and vomiting and any other sick symptoms. Patient states she is drinking per her normal. Patient is currently 18 weeks . States that her OB told her to take plain Mucinex but it is not helping. Her daughter is also sick at this time. ALLERGIES No Known Allergies Current Outpatient Medications Medication Sig Dispense Refill aspirin, enteric coated (ASPIRIN, ENTERIC COATED) 81 mg EC tablet Take 1 tablet by mouth once daily. 100 tablet 2 Ferrous Sulfate (SLOW FE) 142 mg (45 mg iron) TbER Take 3 tablets by mouth once daily. 60 tablet 5 folic acid 400 mcg tablet Take 1 tablet by mouth once daily. 100 tablet 0 ondansetron (ZOFRAN) 4 mg tablet Take 1 tablet by mouth every 8 hours as needed for nausea/vomiting. 30 tablet 1 No current facility-administered medications for this visit. Review of Systems see HPI BP 143/68 Pulse 98 Temp 97.3 Resp 18 Wt 179 lb (81.2kg) SpO2 98% LMP 04/20/2023 PHYSICAL EXAM She is in no acute distress. Moderate erythema, edema and thick green drainage noted nasal mucosa. Frontal and maxillary sinus pain noted. Mild erythema noted posterior oropharynx. Mucous membranes pink and moist. Mild bilateral lymphadenopathy. Heart regular rate and rhythm with no S3 or S4. Lungs clear bilaterally to auscultation with no rales, rhonchi or wheezing. Abdomen positive bowel sounds x4 quadrants with no tenderness or masses. Extremities negative for cyanosis, clubbing and edema. ASSESSMENT/PLAN COVID, influenza and RSV test was collected today and patient be called with results. Patient will take Augmentin as prescribed. She will discuss taking Augmentin with her OB prior to writing this prescription. She will use Tylenol for pain or fever. She will do Mucinex as instructed by her OB. She will increase her intake of fluids. She will follow-up with her family doctor or her OB if symptoms not improved in 3 to 5 days. Red flag signs and symptoms were discussed and patient voiced understanding. Patient will go to the emergency department with any new or worsening symptoms. Patient understands and agrees with this plan. ASSESSMENT/PLAN: 1. Acute sinusitis, recurrence not specified, unspecified location - ICD9: 461.9, ICD10: J01.90 (primary diagnosis) - Supportive care with plenty of fluids, rest, and analgesia prn. - AMOXICILLIN 875 MG-POTASSIUM CLAVULANATE 125 MG TABLET - COVID AND INFLUENZA A/B AND RSV NAAT, ROUTINE - COVID AND INFLUENZA A/B AND RSV NAAT, EXPEDITED 2. Acute cough - ICD9: 786.2, ICD10: R05.1 - COVID AND INFLUENZA A/B AND RSV NAAT, ROUTINE - COVID AND INFLUENZA A/B AND RSV NAAT, EXPEDITED Candida Cruz APRN.SUPERVISOR TELEPHONE ANSWERING SERVICE This note was partially generated using [employer] voice recognition system, and there may be some incorrect words, spellings, and punctuation that were not noted in checking the note before saving. [facility] 09-03-2023 Instructions Candida Cruz, SCHOOL ADMINISTRATOR.SUPERVISOR TELEPHONE ANSWERING SERVICE - 09/03/2023 9:34 AM EDT COVID test today-we will call with results Take medications as prescribed Tylenol for pain or fever Increase fluids Follow-up with family doctor if symptoms not improved in 3 to 5 days Go to the emergency department if symptoms worsen Electronically signed by Candida Cruz, SCHOOL ADMINISTRATOR.SUPERVISOR TELEPHONE ANSWERING SERVICE at 09/03/2023 9:34 AM EDT documented in this encounter [facility] 09-03-2023 History of Presen t illness Narrative Candelaria Riley is a 22 year old female who presents with Cough (Cough, sore throat, congestion x 2 days ). HPI: 2-year-old female patient presents with a frontal headache, congestion, sore throat, intermittent shortness of breath, fatigue, nonproductive cough, stuffy/runny nose that is productive of green mucus and ear pain started 1 to 2 days ago. She denies fever, any changes to her nausea and vomiting and any other sick symptoms. Patient states she is drinking per her normal. Patient is currently 18 weeks . States that her OB told her to take plain Mucinex but it is not helping. Her daughter is also sick at this time. ALLERGIES No Known Allergies Current Outpatient Medications Medication Sig Dispense Refill aspirin, enteric coated (ASPIRIN, ENTERIC COATED) 81 mg EC tablet Take 1 tablet by mouth once daily. 100 tablet 2 Ferrous Sulfate (SLOW FE) 142 mg (45 mg iron) TbER Take 3 tablets by mouth once daily. 60 tablet 5 folic acid 400 mcg tablet Take 1 tablet by mouth once daily. 100 tablet 0 ondansetron (ZOFRAN) 4 mg tablet Take 1 tablet by mouth every 8 hours as needed for nausea/vomiting. 30 tablet 1 No current facility-administered medications for this visit. Review of Systems see HPI BP 143/68 Pulse 98 Temp 97.3 Resp 18 Wt 179 lb (81.2kg) SpO2 98% LMP 04/20/2023 PHYSICAL EXAM She is in no acute distress. Moderate erythema, edema and thick green drainage noted nasal mucosa. Frontal and maxillary sinus pain noted. Mild erythema noted posterior oropharynx. Mucous membranes pink and moist. Mild bilateral lymphadenopathy. Heart regular rate and rhythm with no S3 or S4. Lungs clear bilaterally to auscultation with no rales, rhonchi or wheezing. Abdomen positive bowel sounds x4 quadrants with no tenderness or masses. Extremities negative for cyanosis, clubbing and edema. ASSESSMENT/PLAN COVID, influenza and RSV test was collected today and patient be called with results. Patient will take Augmentin as prescribed. She will discuss taking Augmentin with her OB prior to writing this prescription. She will use Tylenol for pain or fever. She will do Mucinex as instructed by her OB. She will increase her intake of fluids. She will follow-up with her family doctor or her OB if symptoms not improved in 3 to 5 days. Red flag signs and symptoms were discussed and patient voiced understanding. Patient will go to the emergency department with any new or worsening symptoms. Patient understands and agrees with this plan. ASSESSMENT/PLAN: 1. Acute sinusitis, recurrence not specified, unspecified location - ICD9: 461.9, ICD10: J01.90 (primary diagnosis) - Supportive care with plenty of fluids, rest, and analgesia prn. - AMOXICILLIN 875 MG-POTASSIUM CLAVULANATE 125 MG TABLET - COVID & INFLUENZA A/B & RSV NAAT, ROUTINE - COVID AND INFLUENZA A/B & RSV NAAT, EXPEDITED 2. Acute cough - ICD9: 786.2, ICD10: R05.1 - COVID & INFLUENZA A/B & RSV NAAT, ROUTINE - COVID AND INFLUENZA A/B & RSV NAAT, EXPEDITED Candida rCuz APRN.SUPERVISOR TELEPHONE ANSWERING SERVICE This note was partially generated using [employer] voice recognition system, and there may be some incorrect words, spellings, and punctuation that were not noted in checking the note before saving. documented in this encounter [facility] 08-21-2023 Miscellaneous Notes KJ - No VB/LOF/ctxs. Reports some cramps. A&P: Schedule anatomy US AFP ordered Leila Mckinnon MD documented in this encounter [facility] 08-21-2023 Instructions Amy Antoine Ma - 08/21/2023 10:30 AM EDT SEQUENTIAL SCREENINGS The [facility] offers sequential screenings for women who are interested in screenings for chromosomal abnormalities and certain defects during a . The sequential screen combines ultrasound and blood tests to determine the risk of chromosomal abnormalities, including Down's Syndrome (Trisomy 21) and Trisomy 18, as well as open neural tube defects including spina bifida. Ultrasound examination is performed between 11 weeks and 13 weeks gestational age. Blood tests are drawn after the ultrasound and again later in the between 15 and 21 weeks gestational age. Please let your physician know if you are interested in this testing. It will require an appointment with our shift lab technician. This is not an ultrasound performed by a physician in our office during a routine visit. SIGNS AND SYMPTOMS OF LABOR 1. Contractions every 10 minutes or more often 2. Clear, pink, or brownish fluid (water) leaking from vagina 3. Feeling that baby is pushing down, pressure 4. Low, dull backache 5. Cramps that feel like a period 6. Cramps with or without diarrhea If you notice any of the above symptoms, contact our office at [phone] and ask to speak with a nurse. After hours, you can call doctors registry at [phone] OR call [facility] at [phone] and ask to have the doctor graduation coach paged. If you consider this an emergency, dial 7-4-6 or go to your nearest emergency department. NEED HELP? Are you dealing with a violent or abusive relationship? Are you a victim of rape or sexual assult? Call [facility] ([place]) 24 hour Crisis Hotline: 176.958.5153 or 507-098-4986. MANUAL Your Guide to a Healthy manual is now on-line. Visit [email or web address] to download your free copy documented in this encounter [facility] 07-23-2023 Miscellaneous Notes KJ - No VB/LOF/ctxs. Desires zofran for a car trip. A&P: NT with NIPT today Rx zofran given Start 81mg aspirin Leila Mckinnon MD' documented in this encounter [facility] 07-23-2023 Instructions Keisha Scott Ma - 07/23/2023 10:09 AM EDT SEQUENTIAL SCREENINGS The [facility] offers sequential screenings for women who are interested in screenings for chromosomal abnormalities and certain defects during a . The sequential screen combines ultrasound and blood tests to determine the risk of chromosomal abnormalities, including Down's Syndrome (Trisomy 21) and Trisomy 18, as well as open neural tube defects including spina bifida. Ultrasound examination is performed between 11 weeks and 13 weeks gestational age. Blood tests are drawn after the ultrasound and again later in the between 15 and 21 weeks gestational age. Please let your physician know if you are interested in this testing. It will require an appointment with our shift lab technician. This is not an ultrasound performed by a physician in our office during a routine visit. SIGNS AND SYMPTOMS OF LABOR 1. Contractions every 10 minutes or more often 2. Clear, pink, or brownish fluid (water) leaking from vagina 3. Feeling that baby is pushing down, pressure 4. Low, dull backache 5. Cramps that feel like a period 6. Cramps with or without diarrhea If you notice any of the above symptoms, contact our office at [phone] and ask to speak with a nurse. After hours, you can call [employer] registry at [phone] OR call [facility] at [phone] and ask to have the doctor graduation coach paged. If you consider this an emergency, dial 3-6-2 or go to your nearest emergency department. NEED HELP? Are you dealing with a violent or abusive relationship? Are you a victim of rape or sexual assult? Call [facility] ([place]) 24 hour Crisis Hotline: 653.841.7947 or 583-971-8637. MANUAL Your Guide to a Healthy manual is now on-line. Visit [email or web address] to download your free copy documented in this encounter [facility] 06-19-2023 Miscellaneous Notes Rx sent documented in this encounter [facility] 06-18-2023 Note HNO ID: [id number] Author: Balbina Ghosh MD Service: ? Author Type: Physician Type: Progress Notes Filed: 06/19/2023 6:46 PM Note Text: Head Orthopedic Team Physician offered: Patient declines. INITIAL OB ASSESSMENT OB Provider: Balbina Ghosh DO HPI: Candelaria is a 22 year old White Female here to establish Obstetrical Care. Patient's last menstrual period was 04/20/2023 (exact date). from OB Dating Form. Cycles regular 31 day cycles was planned Complaints: None OB History T1 L1 SAB1 IAB0 Ectopic0 Multiple0 Live Births1 Previous history: Prior : never History of 4th degree laceration: No History of shoulder dystocia: No History of Hypertensive disorders including pre-eclampsia, chronic hypertension or gestational hypertension: No History of gestational diabetes: No Patient's Risk Screening for delivery: MEDICAL/PSYCHOSOCIAL HISTORY: History of hemorrhage or bleeding concerns: No Thyroid Disease: No History of chronic hypertension: No History of pre-existing diabetes: No No results found for: ABORHD BMI 28.34 kg/(m2) History of abnormal pap: No Prior treatment for cervical dysplasia: none. History of STDs: None Tobacco use: No Caffeine use: Yes Drug use: No Alcohol use: No Multivitamin with Folic acid: Yes Holiness or heritage: No Would refuse blood transfusion if medically necessary: No Are you currently employed? No Do you have any history of depression, anxiety, PTSD, eating disorders or other mood problems: Yes- anxiety Do you have any safety concerns or history of traumatic events that you would like to discuss with your provider: No How often does this describe you? I don't have enough money to pay my bills: Never Within the past 12 months, have you worried that your food would run out before you had money to buy more: Never In the past 12 months, has lack of reliable transportation kept you from going to medical appointments or work, or from keeping things needed for daily living: Never In the past 12 months, have you had any concerns about having a place to live, or about the condition or quality of your housing: Never Are there any cultural or spiritual needs we should be aware of: No Depression: denies symptoms of depression. OB Depression and Anxiety Screening- This Encounter (since 06/18/2023) None GENETIC SCREENING: Partner present: Yes Patient verbalized knowledge of partner family health history: No Do you or your partner have any personal or family history of defects not previously discussed: No Do you have history of a complicated by anomaly, genetic condition, or demise: No Marital Status: Partner: Name: Blayne Age: 32 Occupation: EMS Gender: Male PAST MEDICAL HISTORY Diagnosis Date Anemia Anxiety state History of difficulty sleeping Mental disorder PAST SURGICAL HISTORY Procedure Laterality Date NONE Current Outpatient Medications Medication Sig Dispense Refill VITS 5-BWIM-MIGRX-DHA ORAL Take by mouth. folic acid 400 mcg tablet Take 1 tablet by mouth once daily. 100 tablet 0 No current facility-administered medications for this visit. Allergies As of Date: 06/18/2023 (No Known Allergies) Fully Assessed 06/18/2023 Does patient have penicillin allergy: No REVIEW OF SYSTEMS: GENERAL: Negative for: Fever or Chills HEENT: Negative for: Headache, Impaired Vision, Ringing in Ears, Nosebleeds NECK: Negative for: Swelling, Pain, Stiffness RESPIRATORY: Negative for: Cough, Shortness of breath, Wheezing GASTROINTESTINAL: Negative for: Heartburn, Constipation, Diarrhea, Blood in stool, Vomiting MUSCULOSKELETAL: Negative for: Muscle or joint pain, stiffness, Joint swelling NEUROLOGIC/PSYCHIATRIC: Negative for: Weakness, Paralysis, Numbness, Tingling, Tremor, Anxiety, Depression, Memory loss SKIN: Negative for: Rash, Itching GENITOURINARY: Negative for: vaginal itching, vaginal discharge, hematuria or dysuria PHYSICAL EXAM: BP 120/78 Ht 5' 8 (1.73m) Wt 186 lb 6.4 oz (84.6kg) LMP 04/20/2023 BMI 28.35 kg/(m2). GENERAL: pleasant in no apparent distress DERMATOLOGY: Normal, without lesions, non-icteric, and non-hirsute NECK: full range of motion CHEST: Normal inspiratory effort BREAST: soft, non-tender, symmetric, no dominant mass, normal nipple-areolar complex, no lymphadenopathy, and no nipple discharge ABDOMEN: soft, non-tender, and no masses NEURO: exam grossly non-focal PELVIS: External genitalia normal without lesions. Perineal body intact. No vaginal or cervical lesions. Cervix closed. Uterus 7 week size. No adnexal masses or tenderness. Clinical Pelvimetry: Pelvimetry clinically assessed as adequate Limited OB ultrasound exam: single intrauterine , positive cardiac activity, and crown-rump length 7w4d OB Risk Screeni (more content not included)... [facility] 06-11-2023 Note HNO ID: [id number] Author: Kathe Cedeño RN Service: ? Author Type: ? Type: Progress Notes Filed: 06/11/2023 11:56 AM Note Text: # 1 - Date: 2018, Sex: None, Weight: None, GA: 11w0d, Delivery: None, Apgar1: None, Apgar5: None, Living: Demise, Comments: No DANDC # 2 - Date: 02/08/18, Sex: Female, Weight: 7 lb 13 oz (3.544 kg), GA: 39w0d, Delivery: Vaginal, Spontaneous, Apgar1: None, Apgar5: None, Living: Living, Comments: Had PTLat 29 weeks-BTZ,on bedrest from 29 weeks to 36 weeks, chronic anemia # 3 - Date: None, Sex: None, Weight: None, GA: None, Delivery: None, Apgar1: None, Apgar5: None, Living: None, Comments: None [facility] 06-11-2023 History of Presen t illness Narrative # 1 - Date: 2015, Sex: None, Weight: None, GA: 11w0d, Delivery: None, Apgar1: None, Apgar5: None, Living: Demise, Comments: No D&C # 2 - Date: 02/08/18, Sex: Female, Weight: 7 lb 13 oz (3.544 kg), GA: 39w0d, Delivery: Vaginal, Spontaneous, Apgar1: None, Apgar5: None, Living: Living, Comments: Had PTLat 29 weeks-BTZ,on bedrest from 29 weeks to 36 weeks, chronic anemia # 3 - Date: None, Sex: None, Weight: None, GA: None, Delivery: None, Apgar1: None, Apgar5: None, Living: None, Comments: None documented in this encounter [facility] 06-11-2023 Miscellaneous Notes DISTANCE HEALTH VISIT This Team Access Model visit is a phone encounter. It required patient-provider interaction for the medical decision making as documented below. I have communicated my name and active licensure. The patient's identity and physical location were verified at the time of this visit. Patient previously delivered in [place]. She has a history of labor at 29 weeks. Was given betamethasone. She went on to deliver at term. I was able to pull her previous delivery record and it is sent to Dr. Ghosh's office for review. Patient was diagnosed with anxiety about a year ago. Treated by Polly Abdi in [place]. Was on trazodone and Effexor. She discontinued the medications 05/22/2023. She states It is a struggle but I am able to deal with it. She denies ever having depression. Denies any anxiety or depression. Has not attended counseling in the past. I have recommended she consider counseling. Recommend [email or web address]. Patient desires aneuploidy screening. Contact information for [employer] [facility] given to patient to check on insurance coverage. Patient considering genetic carrier screening testing. Contact information for [employer] labs given to patient to check on insurance coverage.Kathe Cedeño RN documented in this encounter [facility] 05-28-2023 Miscellaneous Notes patient scheduled Left message for patient to return phone call. Patient has an appointment with Dr Mckinnon for NOB appointment. Please schedule PNOB appointment. documented in this encounter [facility] 12-15-2022 History of Presen t illness Narrative VIRTUAL VISIT PROGRESS NOTE This is a virtual visit using [employer] video visit. It required patient-provider interaction for the medical decision making as documented below. Candelaria Riley is a 22 year old female seen for covid follow-up. Symptoms started last Thursday, tested positive on . Her daughter has court ordered visits with her father, missed it on Thursday because mom had covid, and now they won't let her resume visits without a letter. Her symptoms were mild: headache, slight SOB, low grade fever, sore throat, fever. Her symptoms have completely resolved now. HISTORY REVIEWED (electronic chart updated): PAST MEDICAL HISTORY Diagnosis Date NEGATIVE MEDICAL HISTORY PAST SURGICAL HISTORY Procedure Laterality Date NONE FAMILY HISTORY Problem Relation Age of Onset Crohn's Disease Mother Hypertension Father Ischemic Heart Disease Father Ischemic Heart Disease Maternal Grandfather Social History Tobacco Use Smoking status: Never Smokeless tobacco: Never Vaping Use Vaping Use: Never used Substance Use Topics Alcohol use: Yes Comment: not very often Drug use: Never Current Outpatient Medications Medication Sig venlafaxine ER (EFFEXOR XR) 75 mg 24 hr capsule Take 1 capsule by mouth once daily. traZODone (DESYREL) 100 mg tablet Take 1 tablet by mouth daily at bedtime. levonorgestrel (MIRENA) 20 mcg/24 hours (5 yrs) 52 mg IUD 1 Intra Uterine Device by INTRAUTERINE route. No current facility-administered medications for this visit. ALLERGIES No Known Allergies REVIEW OF SYSTEMS: As above, negative PHYSICAL EXAMINATION: VIDEO EXAM: (if completed, performed via video enabled technology) GENERAL: alert and appropriate, in no distress, well-hydrated, well nourished, and happy, smiling, interactive 1. COVID-19 Symptoms resolved. Note provided. Polly Abdi APRN.VENKAT documented in this encounter [facility] 12-15-2022 Miscellaneous Notes Patient called again asking if our office can provide documentation that it is ok for her daughter to resume parental visits with her dad tomorrow. Patient set up a virtual visit with Polly Abdi today at 1:20 pm if needed in order to get the letter. Please advise octavio at [phone]. Patient called in and stated that she had a positive at home test. Her daughter is currently having weekly visit with her dad through the courts, but those have been post pone because she (Candelaria) is covid positive. The court ask that she retest next week and send in documentation of her negative result so visitation can resume. I informed her that she can test positive for 90 days that [facility] will not retest. Candelaria is asking for some kind of letter stating that her child could resume visitations starting 12/17/22. Please advise. documented in this encounter [facility] 11-04-2022 Miscellaneous Notes It can take about 3 months for menses to regular after stopping any type of control. Please reassure patient. No additional evaluation needed at this time. Leila Mckinnon MD Do you want to order an HCG quant? documented in this encounter [facility] 09-23-2022 History of Presen t illness Narrative Candelaria presents for removal of IUD due to desire for . UNIVERSAL PROTOCOL / SAFETY CHECKLIST Procedure to be Performed: Intrauterine Device (IUD) Removal Sign In: A Moment of CARE was completed. Personnel directly involved with the procedure wore the appropriate PPE (Personal Protective Equipment). Patient/Surrogate Stated/Verified: PATIENT VERIFIED(optional for EMERGENT procedures): Patient name, Date of , Relevant allergies, and The intended procedure Time Out Communication: Intended patient and procedure match the source documents. Consent documented and matches the intended procedure. Sign Out: SIGN OUT (optional for EMERGENT procedures): All instruments, equipment, possible retained foreign bodies accounted for. Post-procedure follow-up management communicated and Plan of Care Visit completed when applicable. PROCEDURE: Speculum placed in vagina, IUD string visualized and grasped with ring forceps. ASSESSMENT/PLAN: IUD removed without difficulty, intact, and patient tolerated procedure well. Contraception plans: none Reviewed pre-conception guidelines including folic acid supplementation. Leila Mckinnon MD documented in this encounter [facility] 09-17-2022 Miscellaneous Notes Pt is taking 75 mg Effexor not 150 mg. The following approved medication requests have been transmitted electronically. Requested Prescriptions Signed Prescriptions Disp Refills venlafaxine ER (EFFEXOR XR) 75 mg 24 hr capsule 30 capsule 11 Sig: Take 1 capsule by mouth once daily. traZODone (DESYREL) 100 mg tablet 30 tablet 11 Sig: Take 1 tablet by mouth daily at bedtime. Yahir Hdz MD Trazodone and venlafaxine 1`50 mg daily would be acceptable. Do you want to switch to a 150 mg venlafaxine pill instead of 2x75 mg? Yahir Hdz MD documented in this encounter [facility] 09-11-2022 Miscellaneous Notes Pharmacy verified in [facility] Patient has been identified by name and date of : Yes Patient aware RX will be sent to pharmacy. No need to notify patient. Pharmacy phones for refill(s): Requested Prescriptions Pending Prescriptions Disp Refills venlafaxine ER (EFFEXOR XR) 37.5 mg 24 hr capsule [Pharmacy Med Name: VENLAFAXINE HCL ER 37.5 MG CAP] 90 capsule 1 Sig: TAKE 1 CAPSULE BY MOUTH ONCE DAILY Date of last office visit : 08/12/2022 Date of next office visit : 09/17/2022 Last 2 Encounter Wt Readings: Date: Wt: 08/12/2022 79.8 kg (176 lb) 07/02/2022 80.3 kg (177 lb) Not applicable Please advise. Diandra Alcantara LPN documented in this encounter [facility] 08-13-2022 Miscellaneous Notes Left VM and sent [employer] message. Let patient know that her insurance will only approve her to take one of the Effexor tablets once daily instead of two, so I gave her one 30 day supply with one refill. She can still begin the dosing as we discussed and reach out if she's going to run out. Polly Abdi APRN.VENKAT documented in this encounter [facility] 08-12-2022 Instructions Polly Abdi APRN.CNP - 08/12/2022 1:31 PM EDT Week 1: 1/2 tablet of Paxil once daily Week 2: 1/2 tablet of Paxil every other day. Start one tablet daily Effexor. Week 3: Stop Paxil. Continue one tablet daily Effexor Week 4: Increase Effexor to 2 tablets once daily. documented in this encounter [facility] 08-12-2022 History of Presen t illness Narrative This note was created using [facility]. Subjective Candelaria Riley is a 21 year old female. Patient presents for follow-up on anxiety and insomnia. Feels even worse on the Paxil. Has now failed Lexapro, Zoloft, and Paxil. States trazodone doesn't help at all with her sleep. Review of Systems Psychiatric/Behavioral: Positive for sleep disturbance. Negative for dysphoric mood. The patient is nervous/anxious. PAST MEDICAL HISTORY Diagnosis Date NEGATIVE MEDICAL HISTORY PAST SURGICAL HISTORY Procedure Laterality Date NONE ALLERGIES Patient has no known allergies. MEDICATIONS levonorgestrel (MIRENA) 20 mcg/24 hours (5 yrs) 52 mg IUD 1 Intra Uterine Device by INTRAUTERINE route. venlafaxine ER (EFFEXOR XR) 37.5 mg 24 hr capsule Take 2 capsules by mouth once daily. FAMILY HISTORY Problem Relation Age of Onset Crohn's Disease Mother Hypertension Father Ischemic Heart Disease Father Ischemic Heart Disease Maternal Grandfather Social History Tobacco Use Smoking status: Never Smokeless tobacco: Never Vaping Use Vaping Use: Never used Substance Use Topics Alcohol use: Yes Comment: not very often Drug use: Never Objective BP 113/80 Pulse 62 Ht 172.1 cm (5' 7.76 ) Wt 79.8 kg (176 lb) BMI 26.95 kg/m Physical Exam Vitals and nursing note reviewed. Constitutional: Appearance: She is well-developed. She is not ill-appearing. Pulmonary: Effort: Pulmonary effort is normal. Skin: General: Skin is warm and dry. Neurological: Mental Status: She is alert and oriented to person, place, and time. Psychiatric: Mood and Affect: Mood normal. Behavior: Behavior normal. Thought Content: Thought content normal. Assessment and Plan 1. Adjustment disorder with anxious mood Has failed 3 SSRI's, will trial SNRI. Cross taper off Paxil and up on Effexor over the next few weeks. Follow up in 4-6 weeks to re-evaluate. - venlafaxine ER (EFFEXOR XR) 37.5 mg 24 hr capsule; Take 2 capsules by mouth once daily. Dispense: 60 capsule; Refill: 0 2. Insomnia, unspecified type No improvement on Trazodone, discontinue at this time. Will focus on treating the anxiety first and hopefully the insomnia will improve. 3. Encounter for immunization - INFLUENZA VACCINE QUADRIVALENT 6 MO - 64 YRS IM Polly Abdi APRN.SUPERVISOR TELEPHONE ANSWERING SERVICE documented in this encounter [facility] 08-01-2022 Miscellaneous Notes Order linked to upcoming appointment. Haley Mosnon RN Patient scheduled Thursday to see NOAH for iud removal, wrong order was placed. Please file new order. Order will need attached to visit. Rasheeda Nance MA documented in this encounter [facility] 07-18-2022 Miscellaneous Notes Zoloft fairly similar to Lexapro. Paxil may be a better choice for the depression, may help with sleep as well (not a sleeping pill ) Let me know if agreeable to switch from Zoloft to Paxil Yahir Hdz MD documented in this encounter [facility] 07-02-2022 History of Presen t illness Narrative This note was created using [employer]. Subjective Candelaria Riley is a 21 year old female. Patient here for follow-up on anxiety Saw PCP on 05/29, started on lexapro 5mg every day. States the symptoms have actually worsened since starting the medication, even her has noticed a change. The lack of sleep is affecting her the most with difficulty falling asleep and staying asleep, can't shut her mind off at night. Also more irritable during the day and things are bothering her more. Had one episode with panic symptoms that she's never had before. Has tried melatonin and OTC antihistamines for sleep, no improvement. Has not thought about counseling, not sure when she'd have the time. Review of Systems Psychiatric/Behavioral: Positive for sleep disturbance. Negative for dysphoric mood. The patient is nervous/anxious. PAST MEDICAL HISTORY Diagnosis Date NEGATIVE MEDICAL HISTORY PAST SURGICAL HISTORY Procedure Laterality Date NONE ALLERGIES Patient has no known allergies. MEDICATIONS levonorgestrel (MIRENA) 20 mcg/24 hours (5 yrs) 52 mg IUD 1 Intra Uterine Device by INTRAUTERINE route. sertraline (ZOLOFT) 50 mg tablet Take 1 tablet by mouth once daily. traZODone (DESYREL) 50 mg tablet Take 1 tablet by mouth daily at bedtime. FAMILY HISTORY Problem Relation Age of Onset Crohn's Disease Mother Hypertension Father Ischemic Heart Disease Father Ischemic Heart Disease Maternal Grandfather Social History Tobacco Use Smoking status: Never Smokeless tobacco: Never Vaping Use Vaping Use: Never used Substance Use Topics Alcohol use: Yes Comment: not very often Drug use: Never Objective BP 123/73 Pulse 93 Ht 172.1 cm (5' 7.76 ) Wt 80.3 kg (177 lb) BMI 27.11 kg/m Physical Exam Vitals and nursing note reviewed. Constitutional: Appearance: She is well-developed. She is not ill-appearing. Pulmonary: Effort: Pulmonary effort is normal. Skin: General: Skin is warm and dry. Neurological: Mental Status: She is alert and oriented to person, place, and time. Psychiatric: Mood and Affect: Mood normal. Behavior: Behavior normal. Thought Content: Thought content normal. Assessment and Plan 1. Adjustment disorder with anxious mood Symptoms worsened on Lexapro, discontinue. Start zoloft, follow-up in 4-6 weeks. Encouraged counseling, more accessible with virtual options. - sertraline (ZOLOFT) 50 mg tablet; Take 1 tablet by mouth once daily. Dispense: 30 tablet; Refill: 0 2. Insomnia, unspecified type Trial trazodone for sleep. - traZODone (DESYREL) 50 mg tablet; Take 1 tablet by mouth daily at bedtime. Dispense: 30 tablet; Refill: 0 Polly Abid APRN.SUPERVISOR TELEPHONE ANSWERING SERVICE documented in this encounter [facility] 06-24-2022 History of Presen t illness Narrative Candelaria is a 21 year old who presents for an annual gynecologic exam. Menses: no menses - Mirena IUD. Contraception: IUD HPV vaccine: Yes Last Pap: 09/24/2020 normal HPV: 09/24/2020 N/A History of abnormal pap: No Last mammogram: never OB History T1 L1 SAB1 IAB0 Ectopic0 Multiple0 Live Births1 Policy Analyst History LMP: IUD Age at Menarche: Age at First : Age at Menopause: Policy Analyst History Comments: Sexual Activity: Yes; Male Contraception: I.U.D. PAST MEDICAL HISTORY Diagnosis Date NEGATIVE MEDICAL HISTORY PAST SURGICAL HISTORY Procedure Laterality Date NONE FAMILY HISTORY Problem Relation Age of Onset Crohn's Disease Mother Hypertension Father Ischemic Heart Disease Father Ischemic Heart Disease Maternal Grandfather SOCIAL HISTORY Social History Tobacco Use Smoking status: Never Smoker Smokeless tobacco: Never Used Vaping Use Vaping Use: Never used Substance Use Topics Alcohol use: Yes Comment: not very often Drug use: Never REVIEW OF SYSTEMS Abdomen: No abdominal pain, nausea, vomiting, diarrhea, or constipation. No bloating, early satiety, indigestion, or increased flatulence. Bladder: No dysuria, gross hematuria, urinary frequency, urinary urgency, or incontinence. Breast: No breast lumps, nipple d/c, overlying skin changes, redness or skin retraction. Allergies and current medication updated:Yes EXAM: BP 108/70 Ht 5' 7.75 (1.72m) Wt 175 lb (79.4kg) BMI 26.80 kg/(m^2). GENERAL: pleasant, female in no apparent distress BREAST: soft, non-tender, symmetric, no dominant mass, normal nipple-areolar complex, no lymphadenopathy and no nipple discharge CHEST: Normal inspiratory effort ABDOMEN: soft, non-tender and no masses PELVIC: external genitalia normal, normal Bartholin's glands, urethra, [place]'s glands, no vulvar lesions, no cervical lesions, good vaginal support, physiologic discharge present, normal appearing perineal body and perianal region; IUD strings extruding from cervix BIMANUAL: uterus normal size, shape and consistency, no adnexal masses and non-tender RECTOVAGINAL: deferred. NEURO: alert and oriented x3,exam grossly non-focal EXTREMITIES: normal ASSESSMENT/PLAN: 1) Health maintenance: Pap/HPV up to date. Nutrition, exercise and routine health maintenance exams reviewed. 2) Contraception: IUD. Follow up for removal as desires . Advised on preconception folic acid use. 3) STD screening: Declined STD check. 4) Follow up one year or sooner as needed Leila Mckinnon MD documented in this encounter [facility] documented as of this encounter (statuses as of 07/23/2023) [facility]07-07-2022 History of Past illness Narrative* Problem Noted Date Diagnosed Date Resolved Date IUD (intrauterine device) in place 05/29/2022 07/23/2023 documented as of this encounter (statuses as of 07/23/2023) [facility] History of Past illness Narrative* Problem Noted Date Diagnosed Date Resolved Date IUD (intrauterine device) in place 05/29/2022 07/23/2023 documented as of this encounter (statuses as of 08/21/2023) [facility] History of Past illness Narrative* Problem Noted Date Diagnosed Date Resolved Date IUD (intrauterine device) in place 05/29/2022 07/23/2023 documented as of this encounter (statuses as of 09/03/2023) [facility] History of Past illness Narrative* Problem Noted Date Diagnosed Date Resolved Date IUD (intrauterine device) in place 05/29/2022 07/23/2023 documented as of this encounter (statuses as of 09/04/2023) [address]07-2022 History of Past illness Narrative* Problem Noted Date Diagnosed Date Resolved Date IUD (intrauterine device) in place 05/29/2022 07/23/2023 documented as of this encounter (statuses as of 09/21/2023) [address]07-2022 History of Past illness Narrative* Problem Noted Date Diagnosed Date Resolved Date IUD (intrauterine device) in place 05/29/2022 07/23/2023 documented as of this encounter (statuses as of 10/25/2023) [address]07-2022 History of Past illness Narrative* Problem Noted Date Diagnosed Date Resolved Date IUD (intrauterine device) in place 05/29/2022 07/23/2023 documented as of this encounter (statuses as of 10/27/2023) [address]07-2022 History of Past illness Narrative* Problem Noted Date Diagnosed Date Resolved Date IUD (intrauterine device) in place 05/29/2022 07/23/2023 documented as of this encounter (statuses as of 10/29/2023) [address]07-2022 History of Past illness Narrative* Problem Noted Date Diagnosed Date Resolved Date IUD (intrauterine device) in place 05/29/2022 07/23/2023 documented as of this encounter (statuses as of 10/30/2023) [facility] History of Past illness Narrative* Problem Noted Date Diagnosed Date Resolved Date IUD (intrauterine device) in place 05/29/2022 07/23/2023 documented as of this encounter (statuses as of 12/27/2023) [address]07-2022 History of Past illness Narrative* Problem Noted Date Diagnosed Date Resolved Date IUD (intrauterine device) in place 05/29/2022 07/23/2023 documented as of this encounter (statuses as of 12/27/2023) [address]07-2022 History of Past illness Narrative* Problem Noted Date Diagnosed Date Resolved Date IUD (intrauterine device) in place 05/29/2022 07/23/2023 documented as of this encounter (statuses as of 01/07/2024) [facility] History of Past illness Narrative* Problem Noted Date Diagnosed Date Resolved Date IUD (intrauterine device) in place 05/29/2022 07/23/2023 documented as of this encounter (statuses as of 01/07/2024) [facility] History of Past illness Narrative* Problem Noted Date Diagnosed Date Resolved Date IUD (intrauterine device) in place 05/29/2022 07/23/2023 documented as of this encounter (statuses as of 01/21/2024) [facility]01[facility]18-2022 NoteCOVID 19 RESULT: SARS-CoV-2 (Agent of COVID-19) Detected by PCR. This test has been authorized by [facility] under an Emergency Use Authorization (EUA). INFLUENZA A PCR: Negative for Influenza A by RT-PCR INFLUENZA B PCR: Negative for Influenza B by RT-PCR RSV PCR: Negative for Respiratory Syncytial Virus (RSV) [facility]:Performed By: #### [id number] ####[facility] [id number] [address] STATES OF [id number] NoteCOVID 19 RESULT: SARS-CoV-2 (Agent of COVID-19) Not Detected by PCR. This test has been authorized by [facility] under an Emergency Use Authorization (EUA). INFLUENZA A PCR: Negative for Influenza A by RT-PCR INFLUENZA B PCR: Negative for Influenza B by RT-PCR RSV PCR: Negative for Respiratory Syncytial Virus (RSV) by [facility]:Performed By: #### [id number] ####[facility] [id number] [place] [address] [place] AMER[place]AEvaluation note* Diagnosis Encounter for gynecological examination without abnormal finding- Primary Routine gynecological examination Encounter for removal of intrauterine contraceptive device documented in this encounter [facility] note* Diagnosis Adjustment disorder with anxious mood- Primary Adjustment disorder with anxiety Insomnia, unspecified type documented in this encounter [facility] note* Diagnosis Encounter for IUD removal- Primary Encounter for removal of intrauterine contraceptive device [facility] Diagnosis Adjustment disorder with anxious mood- Primary Adjustment disorder with anxiety Insomnia, unspecified type Encounter for immunization Need for other specified prophylactic vaccination against single bacterial disease documented in this encounter [facility] note* Diagnosis Adjustment disorder with anxious mood Adjustment disorder with anxiety [facility]* Diagnosis Encounter for IUD removal- Primary Encounter for removal of intrauterine contraceptive device documented in this encounter [facility] note* Diagnosis COVID-19- Primary documented in this encounter [facility] note* Diagnosis High risk due to history of labor, unspecified trimester- Primary Adjustment disorder with anxious mood Adjustment disorder with anxiety Patient request for diagnostic testing Other specified examination documented in this encounter [facility] note* Diagnosis 7 weeks gestation of - Primary state, incidental documented in this encounter [facility] note* Diagnosis High risk due to history of labor, unspecified trimester- Primary 12 weeks gestation of state, incidental documented in this encounter [facility] note* Diagnosis Encounter for (NT) nuchal translucency scan- Primary Other specified screening Encounter for supervision of normal first in first trimester Supervision of normal first 12 weeks gestation of state, incidental [facility]* Diagnosis 16 weeks gestation of - Primary state, incidental [facility]* Diagnosis Acute sinusitis, recurrence not specified, unspecified location- Primary Acute cough documented in this encounter [facility] note* Diagnosis 21 weeks gestation of - Primary state, incidental Encounter for supervision of normal first in second trimester Supervision of normal first documented in this encounter [facility] note* Diagnosis Encounter for supervision of normal first in second trimester- Primary Supervision of normal first 24 weeks gestation of state, incidental documented in this encounter [facility] note* Diagnosis Treatment not available- Primary Procedure not carried out for other reasons documented in this encounter [facility] note* Diagnosis Pharyngitis, unspecified etiology- Primary Eustachian tube dysfunction, bilateral documented in this encounter [facility] note* Diagnosis Encounter for ultrasound to check growth- Primary Encounter for routine screening for malformation using ultrasonics 36 weeks gestation of state, incidental Suspected problem with growth not found [facility]* Diagnosis Uterine size date discrepancy, third trimester- Primary 36 weeks gestation of state, incidental Supervision of other high risk pregnancies, third trimester [facility]* Diagnosis 38 weeks gestation of - Primary state, incidental Supervision of other high risk pregnancies, third trimester documented in this encounter [facility] for referral (narrative)* Outpatient Procedure (Routine) - Pending Review Specialty Diagnoses / Procedures Referred By Shiloh jones Referred To Contact [facility] Diagnoses Encounter for IUD removal Procedures REMOVE INTRAUTERINE DEVICE REMOVE INTRAUTERINE DEVICE Garima Martinez APRN.CNP [address] [place] [address] [facility] [employer] [place] [address] Referral ID Status Reason Start Date Expiration Date Visits Requested Visits Authorized [id number] Pending Review Auto-Generat ed Referral 08/01/2022 08/01/2023 1 1 [facility] for referral (narrative)* Diagnostic Procedure Only (Routine) - Authorized Specialty Diagnoses / Procedures Referred By Shiloh jones Referred To Contact [facility] Diagnoses 21 weeks gestation of Encounter for supervision of normal first in second trimester Procedures OBSTETRIC ULTRASOUND WHI US PREG UTERUS AFTER 1ST TRIMEST GESTATION Balbina Ghosh MD [address] [place] [address] [facility] [address] [place] [address] Referral ID Status Reason Start Date Expiration Date Visits Requested Visits Authorized [id number] Authorized Auto-Generat ed Referral 09/20/2024 1 1 T [facility] Summary Purpose Family History No Family History Records FoundNo Family History Records FoundNo Family History Records FoundNo Family History Records FoundNo Family History Records FoundNo Family History Records FoundNo Family History Records FoundNo Family History Records Found Advance Directives Documents on File Type Date Recorded Patient Visual Basic Developer Expl anation Advance Directive(s) 03/05/2022 3:50 PM Advance Directive(s) 12/10/2021 3:17 PM Advance Directive(s) 12/10/2021 3:31 PM Advance Directive(s) 12/03/2021 2:58 PM Advance Directive(s) 10/19/2021 9:02 AM Advance Directive(s) 10/29/2020 2:52 PM Health Concerns Problem Noted Date Diagnosed Date [facility] Education - COMMON 06/18/2023 [place] - [place] 06/18/2023 Problem Noted Date Diagnosed Date [facility] Education - COMMON 06/18/2023 Education - [place] 06/18/2023 Problem Noted Date Diagnosed Date [facility] Education - [facility] 06/18/2023 Education - [place] 06/18/2023 Problem Noted Date Diagnosed Date [facility] Education - [facility] 06/18/2023 Education - [place] 06/18/2023 Problem Noted Date Diagnosed Date [facility] Education - [facility] 06/18/2023 Education - [place] 06/18/2023 Problem Noted Date Diagnosed Date [facility] Education - [facility] 06/18/2023 Education - [place] 06/18/2023 Problem Noted Date Diagnosed Date [facility] Education - [facility] 06/18/2023 Education - [place] 06/18/2023 Problem Noted Date Diagnosed Date [facility] Education - [facility] 06/18/2023 Education - [place] 06/18/2023 Problem Noted Date Diagnosed Date [facility] Education - [facility] 06/18/2023 Education - [place] 06/18/2023 Problem Noted Date Diagnosed Date [facility] Education - [facility] 06/18/2023 Education - [place] 06/18/2023 Problem Noted Date Diagnosed Date [facility] Education - [facility] 06/18/2023 Education - [place] 06/18/2023 Problem Noted Date Diagnosed Date [facility] Education - [facility] 06/18/2023 Education - [place] 06/18/2023 Additional Source Comments INFORMATION SOURCE (unrecogn ized section and content) DATE CREATED AUTHOR AUTHOR'S ORGANIZ ATION 01/28/2019 [employer] DATE CREATED AUTHOR AUTHOR'S ORGANIZ ATION 04/14/2019 [facility] DATE CREATED AUTHOR AUTHOR'S ORGANIZ ATION 11/22/2020 [facility] DATE CREATED AUTHOR AUTHOR'S ORGANIZ ATION 01/05/[address] [facility] [place] DATE CREATED AUTHOR AUTHOR'S ORGANIZ ATION 03/06/2022 [facility] DATE CREATED AUTHOR AUTHOR'S ORGANIZ ATION 12/27/2023 [facility] DATE CREATED AUTHOR AUTHOR'S ORGANIZ ATION 01/09/2024 [facility] Source Comments (unrecognize d section and content) In the event this informatio n is protected by the Federal Confidentiality of Alcohol and Drug Abuse Patient Records regulations: The Federal rules restrict any use of the information to criminally investigate or prosecute any alcohol or drug abuse patient.[facility] the event this information is protected by the Federal Confidentiality of Alcohol and Drug Abuse Patient Records regulations: The Federal rules restrict any use of the information to criminally investigate or prosecute any alcohol or drug abuse patient.[facility] the event this information is protected by the Federal Confidentiality of Alcohol and Drug Abuse Patient Records regulations: The Federal rules restrict any use of the information to criminally investigate or prosecute any alcohol or drug abuse patient.[facility] the event this information is protected by the Federal Confidentiality of Alcohol and Drug Abuse Patient Records regulations: The Federal rules restrict any use of the information to criminally investigate or prosecute any alcohol or drug abuse patient.[facility] the event this information is protected by the Federal Confidentiality of Alcohol and Drug Abuse Patient Records regulations: The Federal rules restrict any use of the information to criminally investigate or prosecute any alcohol or drug abuse patient.[facility] HospitalIn the event this information is protected by the Federal Confidentiality of Alcohol and Drug Abuse Patient Records regulations: The Federal rules restrict any use of the information to criminally investigate or prosecute any alcohol or drug abuse patient.[facility] HospitalIn the event this information is protected by the Federal Confidentiality of Alcohol and Drug Abuse Patient Records regulations: The Federal rules restrict any use of the information to criminally investigate or prosecute any alcohol or drug abuse patient.[facility] HospitalIn the event this information is protected by the Federal Confidentiality of Alcohol and Drug Abuse Patient Records regulations: The Federal rules restrict any use of the information to criminally investigate or prosecute any alcohol or drug abuse patient.[facility] HospitalIn the event this information is protected by the Federal Confidentiality of Alcohol and Drug Abuse Patient Records regulations: The Federal rules restrict any use of the information to criminally investigate or prosecute any alcohol or drug abuse patient.[facility] HospitalIn the event this information is protected by the Federal Confidentiality of Alcohol and Drug Abuse Patient Records regulations: The Federal rules restrict any use of the information to criminally investigate or prosecute any alcohol or drug abuse patient.[facility] HospitalIn the event this information is protected by the Federal Confidentiality of Alcohol and Drug Abuse Patient Records regulations: The Federal rules restrict any use of the information to criminally investigate or prosecute any alcohol or drug abuse patient.[facility] HospitalIn the event this information is protected by the Federal Confidentiality of Alcohol and Drug Abuse Patient Records regulations: The Federal rules restrict any use of the information to criminally investigate or prosecute any alcohol or drug abuse patient.[facility] HospitalIn the event this information is protected by the Federal Confidentiality of Alcohol and Drug Abuse Patient Records regulations: The Federal rules restrict any use of the information to criminally investigate or prosecute any alcohol or drug abuse patient.[facility] HospitalIn the event this information is protected by the Federal Confidentiality of Alcohol and Drug Abuse Patient Records regulations: The Federal rules restrict any use of the information to criminally investigate or prosecute any alcohol or drug abuse patient.[facility] HospitalIn the event this information is protected by the Federal Confidentiality of Alcohol and Drug Abuse Patient Records regulations: The Federal rules restrict any use of the information to criminally investigate or prosecute any alcohol or drug abuse patient.[facility] HospitalIn the event this information is protected by the Federal Confidentiality of Alcohol and Drug Abuse Patient Records regulations: The Federal rules restrict any use of the information to criminally investigate or prosecute any alcohol or drug abuse patient.[facility] HospitalIn the event this information is protected by the Federal Confidentiality of Alcohol and Drug Abuse Patient Records regulations: The Federal rules restrict any use of the information to criminally investigate or prosecute any alcohol or drug abuse patient.[facility] HospitalIn the event this information is protected by the Federal Confidentiality of Alcohol and Drug Abuse Patient Records regulations: The Federal rules restrict any use of the information to criminally investigate or prosecute any alcohol or drug abuse patient.[facility] HospitalIn the event this information is protected by the Federal Confidentiality of Alcohol and Drug Abuse Patient Records regulations: The Federal rules restrict any use of the information to criminally investigate or prosecute any alcohol or drug abuse patient.[facility] HospitalIn the event this information is protected by the Federal Confidentiality of Alcohol and Drug Abuse Patient Records regulations: The Federal rules restrict any use of the information to criminally investigate or prosecute any alcohol or drug abuse patient.[facility] HospitalIn the event this information is protected by the Federal Confidentiality of Alcohol and Drug Abuse Patient Records regulations: The Federal rules restrict any use of the information to criminally investigate or prosecute any alcohol or drug abuse patient.[facility] HospitalIn the event this information is protected by the Federal Confidentiality of Alcohol and Drug Abuse Patient Records regulations: The Federal rules restrict any use of the information to criminally investigate or prosecute any alcohol or drug abuse patient.[facility] HospitalIn the event this information is protected by the Federal Confidentiality of Alcohol and Drug Abuse Patient Records regulations: The Federal rules restrict any use of the information to criminally investigate or prosecute any alcohol or drug abuse patient.[facility] HospitalIn the event this information is protected by the Federal Confidentiality of Alcohol and Drug Abuse Patient Records regulations: The Federal rules restrict any use of the information to criminally investigate or prosecute any alcohol or drug abuse patient.[facility] HospitalIn the event this information is protected by the Federal Confidentiality of Alcohol and Drug Abuse Patient Records regulations: The Federal rules restrict any use of the information to criminally investigate or prosecute any alcohol or drug abuse patient.[facility] HospitalIn the event this information is protected by the Federal Confidentiality of Alcohol and Drug Abuse Patient Records regulations: The Federal rules restrict any use of the information to criminally investigate or prosecute any alcohol or drug abuse patient.[facility] HospitalIn the event this information is protected by the Federal Confidentiality of Alcohol and Drug Abuse Patient Records regulations: The Federal rules restrict any use of the information to criminally investigate or prosecute any alcohol or drug abuse patient.[facility] HospitalIn the event this information is protected by the Federal Confidentiality of Alcohol and Drug Abuse Patient Records regulations: The Federal rules restrict any use of the information to criminally investigate or prosecute any alcohol or drug abuse patient.[facility] HospitalIn the event this information is protected by the Federal Confidentiality of Alcohol and Drug Abuse Patient Records regulations: The Federal rules restrict any use of the information to criminally investigate or prosecute any alcohol or drug abuse patient.[facility] HospitalIn the event this information is protected by the Federal Confidentiality of Alcohol and Drug Abuse Patient Records regulations: The Federal rules restrict any use of the information to criminally investigate or prosecute any alcohol or drug abuse patient.[facility] Reason for Visit (unrecogniz ed section and content) Reason Comments Follow Up Reason Comments Orders Reason Comments Med Change Request Reason Comments IUD Removal Specialty Diagnoses / Procedures Referred By Shiloh jones Referred To Contact [facility] Diagnoses Encounter for IUD removal Encounter for insertion of intrauterine contraceptive device Procedures REMOVE INTRAUTERINE DEVICE REMOVE INTRAUTERINE DEVICE LEVONORGESTREL IU 52MG 5 YR INSERT INTRAUTERINE DEVICE Garima Martinez APRN.[employer] [address] [place] [address] [facility] [address] [address] Referral ID Status Reason Start Date Expiration Date Visits Requested Visits Authorized [id number] Authorized Auto-Generat ed Referral 08/04/2022 11/22/2022 2 2 Reason Comments Patient Question Reason Comments Covid Follow Up Reason Comments Future Appointment Reason Comments Care Reason Onset Date Comments Care 07/23/2023 Reason Comments US Specialty Diagnoses / Procedures Referred By Shiloh jones Referred To Contact [facility] Diagnoses Encounter for supervision of normal first in first trimester Procedures NUCHAL TRANSLUCENCY WHI US NUCHAL TRANSLUCENCY 1ST GESTATION Balbina Ghosh MD [address] [place] [address] [facility] [address] [place] [address] Referral ID Status Reason Start Date Expiration Date V isits Requested Visits Authorized [id number] Closed Auto-Generate d Referral 06/18/2023 06/17/2024 1 1 Reason Onset Date Comments Care 08/21/2023 Reason Comments Cough Cough, sore throat, congestion x 2 days Reason Comments Results Reason Onset Date Comments Care 09/21/2023 Reason Onset Date Comments Care 10/14/2023 Reason Comments Opened In Error Reason Comments Medication Problem Reason Comments Ear Pain Jaw Pain Reason Comments Ear Problem Left ear and jaw pasha n started yesterday, pt is 35 weeks Specialty Diagnoses / Procedures Referred By Shiloh jones Referred To Contact [facility] Diagnoses 33 weeks gestation of Encounter for supervision of other normal in third trimester Procedures OBSTETRIC ULTRASOUND WHI US PREG UTERUS AFTER 1ST TRIMEST GESTATION Balbina Ghosh MD [address] [place] [address] [facility] [address] [place] [address] Referral ID Status Reason Start Date Expiration Date V isits Requested Visits Authorized [id number] Closed Auto-Generate d Referral 12/17/2023 12/16/2024 1 1 Reason Onset Date Comments Care 01/07/2024 Reason Onset Date Comments Care 01/19/2024 Care Teams (unrecognized sec tion and content) Patient Relations Specialist Relationship Specialty Start Date End Date Yahir Hdz MD [address] [facility] [address] [place], [place] [id number] PCP - General Family Practice 05/29/22 Patient Relations Specialist Relationship Specialty Start Date End Date Yahir Hdz MD [address] [place] [address] [address] [place], [place] [id number] PCP - General Family Practice 05/29/22 Patient Relations Specialist Relationship Specialty Start Date End Date Yahir Hdz MD [address] [place] [address] [place] [address] PCP - General Family Practice 05/29/22 Patient Relations Specialist Relationship Specialty Start Date End Date Yahir Hdz MD [address] [place] [address] [place] [address] PCP - General Family Medicine 05/29/22 Patient Relations Specialist Relationship Specialty Start Date End Date Yahir Hdz MD [address] [place] [address] [place] [address] PCP - General Family Medicine 05/29/22 Patient Relations Specialist Relationship Specialty Start Date End Date Yahir Hdz MD [address] [place] [address] [address] [place], [place] [id number] PCP - General Family Medicine 05/29/22 Patient Relations Specialist Relationship Specialty Start Date End Date Yahir Hdz MD [address] [place] [address] [place] [address] PCP - General Family Medicine 05/29/22 Patient Relations Specialist Relationship Specialty Start Date End Date Yahir Hdz MD [address] [facility] [address] [place], [place] [id number] PCP - General Family Medicine 05/29/22 Patient Relations Specialist Relationship Specialty Start Date End Date Yahir Hdz MD [address] [facility] [place] [address] PCP - General Family Medicine 05/29/22 Patient Relations Specialist Relationship Specialty Start Date End Date Yahir Hdz MD [address] [facility] [place] [address] PCP - General Family Medicine 05/29/22 Patient Relations Specialist Relationship Specialty Start Date End Date Yahir Hdz MD [address] [facility] [place] [address] PCP - General Family Medicine 05/29/22 Patient Relations Specialist Relationship Specialty Start Date End Date Yahir Hdz MD [address] [facility] [place] [address] PCP - General Family Medicine 05/29/22 Patient Relations Specialist Relationship Specialty Start Date End Date Yahir Hdz MD [address] [facility] [place] [address] PCP - General Family Medicine 05/29/22 Patient Relations Specialist Relationship Specialty Start Date End Date Yahir Hdz MD [address] [facility] [address] [place], [place] [id number] PCP - General Family Medicine 05/29/22 Patient Relations Specialist Relationship Specialty Start Date End Date Yahir Hdz MD [address] [facility] [address] [place], [place] [address] PCP - General Family Medicine 05/29/22 Patient Relations Specialist Relationship Specialty Start Date End Date Yahir Hdz MD [address] [facility] [place] [address] PCP - General Family Medicine 05/29/22 Patient Relations Specialist Relationship Specialty Start Date End Date Yahir Hdz MD [address] [facility] [place] [address] PCP - General Family Medicine 05/29/22 Patient Relations Specialist Relationship Specialty Start Date End Date Yahir Hdz MD [address] [facility] [place] [address] PCP - General Family Medicine 05/29/22 Patient Relations Specialist Relationship Specialty Start Date End Date Yahir Hdz MD [address] [facility] [place] [address] PCP - General Family Medicine 05/29/22 Patient Relations Specialist Relationship Specialty Start Date End Date Yahir Hdz MD [address] [facility] [place] [address] PCP - General Family Medicine 05/29/22 Patient Relations Specialist Relationship Specialty Start Date End Date Yahir Hdz MD [address] [facility] [place] [address] PCP - General Family Medicine 05/29/22 Patient Relations Specialist Relationship Specialty Start Date End Date Yahir Hdz MD [address] [facility] [place] [address] PCP - General Family Medicine 05/29/22 FOR RECORDS PERTAINING TO PATIENTS WHO ARE OR HAVE BEEN ENROLLED IN A CHEMICAL DEPENDENCY/SUBSTANCEABUSE PROGRAM, SOME INFORMATION MAY BE OMITTED. This clinical summary was aggregated from multiple sources. Caution should be exercised in using it in the provision of clinical care. This summary normalizes information from multiple sources, and as a consequence, information in this document may materially change the coding, format and clinical context of patient data. In addition, data may be omitted in some cases. CLINICAL DECISIONS SHOULD BE BASED ON THE PRIMARY CLINICAL RECORDS. [facility]. provides no warranty or guarantee of the accuracy or completeness of information in this document.
[2024-01-25] MEDS: LACTATED RINGERS 500 ML 999 ML IV ×2 (07:35→10:55)
[2024-01-25] MEDS: Lactated Ringers 1,000 ML 50 ML IV (07:35)
[2024-01-25 08:05] LABS: Absolute Lymphocyte Count 3.43 X10^3/uL (0.83-4.51); Absolute Neutrophil Count 7.9 X10^3/uL (2.0-7.7); Basophil# 0.05 X10^3/uL; Basophil% 0.4 % (0-1); Eosinophil# 0.14 X10^3/uL; Eosinophils% 1.1 % (0-5); Hemoglobin 10.9 g/dL (12.0-15.0); Lymphocyte # 3.43 X10^3/ul (0.83-4.51); Lymphocyte % 27.1 % (19-41); Mean Corpuscular Hgb 26.3 pg (27.0-32.0); Mean Corpuscular Volume 79.5 fL (81-99); Mean Platelet Vol. 9.8 fl (6.2-12.0); Monocyte# 1.02 X10^3/uL; Monocyte% 8.1 % (0-10); NRBC Flagged by Analyzer 0 % (0-5); Neutrophil # 7.88 X10^3/uL (2.7-7.7); Neutrophil % 62.4 % (47-70); Platelet Count 299 K/mm3 (150-450); RBC Distribution Width CV 13.2 % (11.6-14.6); RBC Distribution Width SD 37.8 fl (35.1-43.9); Red Blood Count 4.15 M/mm3 (4.2-5.4); White Blood Count 12.6 K/mm3 (4.4-11.0)
--- NOTE | 2024-01-25 08:29 | PCM.HP.OB ---
HPI - General General Date of Admission: 01/25/24 HPI Narrative MERRICK SHERMAN, is a 23 F at 39 weeks gestation who presents for induction of labor. has been uneventful. She has a history of labor but delivery at term. EWF 17%, FRANCI 9. Maternal Data Information TOMMY Calculator Estimated Delivery Date Method Current WG Current Estimate 01/31/24 Manual 39w 1d PFSH [facility] Medical History (Updated 01/25/24 @ 08:33 by Chelsi Deshpande CNM) History of pre-term labor Home Medications aspirin 81 mg tablet,delayed release mg prevention BP 01/25/24 [History Last Taken Unknown] ferrous sulfate 325 mg (65 mg iron) tablet (iron) 325 mg PO DAILY anemia 01/25/24 [History Last Taken Unknown] folic acid 400 mcg tablet 01/25/24 [History Last Taken Unknown] magnesium oxide 400 mg (241.3 mg magnesium) tablet mg 01/25/24 [History Last Taken Unknown] Allergy/AdvReac Type Severity Reaction Status Date / Time No Known Allergies Allergy Verified 01/25/24 07:48 Social History Smoking Status: Never smoker History Elective abortions Hx Para 1 Spontaneous abortions Hx # Term Pregnancies Ectopic pregnancies Hx # Pregnancies Multiple births # of living children ROS Eyes Eyes: Denies blurry vision, change in vision or spots in vision ENT HEENT: Denies dizziness or headache(s) Cardiovascular Cardiovascular: Denies abdominal pain, chest pain or dyspnea Respiratory/Chest Respiratory/Chest: Denies cough, dyspnea, shortness of breath at rest or shortness of breath with exertion Gastrointestinal Gastrointestinal: Denies abdominal pain, diarrhea or vomiting Genitourinary Genitourinary: Denies change in urinary stream, difficulty urinating or dysuria Musculoskeletal Musculoskeletal: Reports none Integumentary Integumentary: Denies rash Neurologic Neurologic: Denies dizziness, headache(s), memory loss or weakness Psychiatric Psychiatric: Reports none Vital Signs Vital Signs Vital Signs: 01/25/24 07:24 01/25/24 07:24 01/25/24 07:25 Temperature Temperature Source Temporal Pulse Rate 94 Blood Pressure 122/74 H BP Systolic 122 BP Diastolic 74 01/25/24 07:25 Temperature 99.0 F Temperature Source Pulse Rate Blood Pressure BP Systolic BP Diastolic Weight Weight: 187 lb 3.2 oz Body Mass Index (BMI) 28.4 Physical Exam Const alert, oriented x3 and no apparent distress General Appearance: cooperative Orientation / Consciousness: awake Exam Limitations: no limitations HEENT normocephalic Head and Scalp: normal to inspection Eyes General Eye: normal appearance of both eyes Neck full ROM and no lymphadenopathy Lymph Lymphatic: no lymphadenopathy noted Chest inspection of chest normal Resp normal respiratory effort, normal air movement and clear to auscultation bilaterally Effort and Inspection: able to speak in complete sentences and symmetric chest movement Cardio regular rate and regular rhythm GI normal to inspection, nondistended, normoactive bowel sounds Manual OB Exam: presentation cephalic Back/Spine normal ROM Extremity full ROM and no calf tenderness Skin no rashes or lesions noted General Skin Exam: no breakdown Neuro oriented x3 and CN's II-XII intact bilaterally Psych mental status grossly normal and thought process normal Labs Labs Labs: Blood Type Pending Antibody Screen Pending Hct 33.0 % (37-47) L Hgb 10.9 g/dL (12.0-15.0) L Syphilis Total Ab Pending GBS negative Assessment & Plan (1) 39 weeks gestation of : (2) Encounter for elective induction of labor: (3) Adjustment disorder with anxious mood: PLAN: Plan CE /-2- posterior Admit to labor and delivery Routine labs Start IV fluids and run per orders Start Pitocin at 2 mu/min and increase per orders Epidural when indicated GBS negative Anticipate Dr. Ghosh notified and is collaborating physician
[2024-01-25] MEDS: Oxytocin 15 Units/NS 250ml 15 UNITS/250 ML IV.SOLN 2 UNITS IV (08:34)
[2024-01-25 09:13] LABS: Syphilis Antibodies Non-reactive
[2024-01-25] MEDS: fentaNYL-bupivacaine (epidural) 100 ML BAG EPIDURAL (12:15)
--- NOTE | 2024-01-25 12:46 | PN.OBGYN_ITS ---
Subjective Subjective Patient seen at bedside. Comfortable with epidrual. Objective Data Objective Data Vital Signs: Vital Signs Temp Pulse BP Pulse Ox 98.2 F 88 128/72 H 100 01/25/24 11:49 01/25/24 12:44 01/25/24 12:44 01/25/24 12:44 Weight: 187 lb 3.2 oz Body Mass Index (BMI) 28.4 Intake & Output: Intake and Output for Last 24 Hours 01/23/24 01/24/24 01/25/24 23:59 23:59 23:59 Intake Total 1153.19 / 1153.19 Balance 1153.19 / 1153.19 Lab / Micro Data 01/25/24 07:35 Labs: Laboratory Results - last 24 hr 01/25/24 07:35: WBC 12.6 H, RBC 4.15 L, Hgb 10.9 L, Hct 33.0 L, MCV 79.5 L, MCH 26.3 L, MCHC 33.0, RDW Std Deviation 37.8, RDW Coeff of Pastor 13.2, Plt Count 299, MPV 9.8, Immature Gran % (Auto) 0.900, Neut % (Auto) 62.4, Lymph % (Auto) 27.1, [place] % (Auto) 8.1, Eos % (Auto) 1.1, Baso % (Auto) 0.4, Absolute Neuts (auto) 7.9 H, Absolute Lymphs (auto) 3.43, Nucleated RBC % 0, Syphilis Total Ab Non- reactive, Blood Type A POSITIVE, Antibody Screen NEGATIVE Assessment & Plan (1) Encounter for elective induction of labor: (2) 39 weeks gestation of : (3) Adjustment disorder with anxious mood: PLAN: Plan CE /-2 AROM for clear fluid IUPC placed per request for Pitocin regulation Pitocin IV at 10 mu/min- continue to increase per policy Cat, 1 tracing Anticipate
[2024-01-25] MEDS: Ondansetron 4 MG/2 ML Vial IV (14:20)
[2024-01-25] MEDS: Lactated Ringers 1,000 ML 200 ML IV (14:23)
--- NOTE | 2024-01-25 15:10 | EX.PCM.OBRPT ---
Assessment & Plan (1) (spontaneous vaginal delivery): (2) Adjustment disorder with anxious mood: (3) Encounter for elective induction of labor: (4) 39 weeks gestation of : Maternal Data Information TOMMY Calculator Estimated Delivery Date Method Current WG Current Estimate 01/31/24 Manual 39w 1d Vaginal Delivery Maternal Presentation Maternal Presentation: Elective Induction Maternal Presentation: Patient is 39.1 weeks gestation here for elective induction of labor. Type of Induction: Pitocin and Amniotomy Operative Information Date of Procedure: 01/25/24 Pre-Operative Diagnosis: Term gestation, Induction of labor Post-Operative Diagnosis: , Live female infant Surgery / Procedure Performed: Spontaneous Vaginal Delivery Type of Anesthesia: Epidural Drain: - (Straight cath for 100 cc clear/yellow urine) Estimated Blood Loss: 100 Time of Delivery: 14:55 Findings Description of Procedure: Patient quickly progressed to complete dilation with urge to push. With minimal maternal effort, head delivered spontaneously over intact perineum followed by anterior shoulder and remainder of infant body without traction. Vigorous female placed on maternal abdomen and attended to by nursing staff. Pitocin IV started for active management of the third stage of labor. 3 vessel cord was clamped and cut by FOB after delay. Placenta delivered spontaneously and intact. Straight cath for 100 cc yellow/clear urine. Fundus firm 3 below U. Vaginal sweep completed by me. Vagina and perineum intact. EBL 100 cc. APGARS 9/9. Patient and bonding well at this time. Presentation: Vertex Amniotic Membrane Rupture Type: Artificial Time of Membrane Rupture: 1234 Amniotic Fluid Description: Clear Placental Delivery Description: Spontaneous Placenta Disposition: [facility] Cord Vessel Description: 3 Vessels Cord Entanglement: None A Gender: Female (1 minute): 9 (5 minute): 9 Delayed Cord Clamping: Yes Post Vaginal Delivery Medications Given After Delivery: IV Pitocin Episiotomy Description: None Laceration: None Complication Complications: None
[2024-01-25] MEDS: Oxytocin 15 Units/NS 250ml 15 UNITS/250 ML IV.SOLN 83 UNITS IV (15:28)
[2024-01-25] MEDS: Acetaminophen 500 MG Tablet 1000 MG PO (23:09)
[2024-01-26] VITALS (9 sets, daily range): BP systolic 117–125; BP diastolic 62–75; PULSE 73–88; RESP 16–20; TEMP 36.3–36.7; O2SAT 99–100
[2024-01-26] MEDS: Acetaminophen 500 MG Tablet 1000 MG PO (04:36)
--- NOTE | 2024-01-26 07:27 | DS.PCM_ITS ---
Providers Date of Admission: 01/25/24 Primary Care Physician: Dr. Daniele Barboza MD Reason For Visit: VAGINAL DELIVERY Diagnosis Discharge Diagnosis (1) (spontaneous vaginal delivery): Status: Acute Code(s): O80 - Encounter for full-term uncomplicated delivery (2) Adjustment disorder with anxious mood: Status: Acute Code(s): F43.22 - Adjustment disorder with anxiety (3) Encounter for elective induction of labor: Status: Acute Code(s): Z34.90 - Encounter for supervision of normal , unspecified, unspecified trimester (4) 39 weeks gestation of : Status: Acute Code(s): Z3A.39 - 39 weeks gestation of Plan CE /-2 AROM for clear fluid IUPC placed per request for Pitocin regulation Pitocin IV at 10 mu/min- continue to increase per policy Cat, 1 tracing Anticipate Medications at Discharge Home Medications aspirin 81 mg tablet,delayed release mg prevention BP 01/25/24 ferrous sulfate 325 mg (65 mg iron) tablet (iron) 325 mg PO DAILY anemia 01/25/24 folic acid 400 mcg tablet 01/25/24 magnesium oxide 400 mg (241.3 mg magnesium) tablet mg 01/25/24 Hospital Course Operations None Procedures None Summary of Care Provided Minutes Spent on Discharge: 15 Hospital Course: Patient for . Hospital course was uneventful. Physical Exam Const alert and no apparent distress General Appearance: cooperative and comfortable Exam Limitations: no limitations HEENT normocephalic Eyes General Eye: normal appearance of both eyes Neck full ROM General: normal visual inspection Chest Chest: symmetrical chest wall rise Resp normal respiratory effort and normal air movement Effort and Inspection: symmetric chest movement Auscultation: clear to auscultation bilaterally Cardio regular rate and regular rhythm GI normal to inspection, nondistended, normoactive bowel sounds Back/Spine normal ROM Extremity full ROM and no calf tenderness General Extremity: normal exam except as noted Skin no rashes or lesions noted Neuro CN's II-XII intact bilaterally Psych mental status grossly normal Weight / BMI Weight Weight: 187 lb 3.2 oz Body Mass Index (BMI) 28.4 ABG / Lab / Microbiology Data 01/25/24 07:35 Laboratory: Laboratory Results - last 24 hr 01/25/24 07:35: WBC 12.6 H, RBC 4.15 L, Hgb 10.9 L, Hct 33.0 L, MCV 79.5 L, MCH 26.3 L, MCHC 33.0, RDW Std Deviation 37.8, RDW Coeff of Pastor 13.2, Plt Count 299, MPV 9.8, Immature Gran % (Auto) 0.900, Neut % (Auto) 62.4, Lymph % (Auto) 27.1, Blair % (Auto) 8.1, Eos % (Auto) 1.1, Baso % (Auto) 0.4, Absolute Neuts (auto) 7.9 H, Absolute Lymphs (auto) 3.43, Nucleated RBC % 0, Syphilis Total Ab Non- reactive, Blood Type A POSITIVE, Antibody Screen NEGATIVE D/C Instructions Discharge Diet: No restrictions Discharge Activity: Return to Normal Activity, May Shower and May Take a Tub Bath May resume sexual activity in: 4-6 weeks Weight Bearing Status: Weight bearing as tolerated Call your doctor if you observe: Fever of 101 or Higher, Inability to urinate, Using more than 1 pad per hour, Shortness of breath, Dizziness, Swelling in the ankles, Chest pain, Calf discomfort and Uncontrolled pain Please Follow Up With: Chelsi Deshpande CNM When: Within 10 days Meaningful Use Info Meaningful Use Diagnoses (Choose all that apply): None applicable Discharge Plan Admission Admit Date/Time: 01/25/24 07:05 Primary Reason for Your Visit: Labor and Delivery Attending Provider: Chelsi Deshpande Primary Care Provider: Daniele Barboza Discharge Orders/Prescriptions Prescriptions: No Action aspirin 81 mg tablet,delayed release (DR/EC) Patient Comments: take 1 tablet by mouth once daily folic acid 400 mcg tablet Patient Comments: take 1 tablet by mouth once daily magnesium oxide 400 mg (241.3 mg magnesium) tablet Patient Comments: take 1 tablet by mouth at bedtime ferrous sulfate [iron] 325 mg (65 mg iron) tablet 325 mg PO DAILY Referrals / Follow Up: Daniele Barboza MD [Primary Care Provider] -
--- NOTE | 2024-01-26 12:04 | CASEMGMT ---
Social Work Assessment Labor and Delivery Unit Patient Address: [place] [address] Phone number: [phone] Date of Referral: 01/25/24 Time of Referral:? 2240 Referred By: Chelsi Deshpande Date of Intervention: ??01/26/24 Time of Intervention:? 1030 Reason for Referral:? mental health Sw completed chart review and acknowledged social work consult due to maternal mental health history. Sw presented to bedside and introduced self to mother of baby (MOB- Candelaria) and father of baby (FOB- Blayne). Sw explained reason for sw involvement and completed psychosocial assessment. Sw asked FOB to step out of room momentarily so that MOB could complete Sunbright Depression Scale. FOB left room momentarily. History obtained from: medical records, MOB and FOB Household composition: Currently residing in the family home is MOB, MOB's older daughter, Chandrika (5 years old), FOB, FOB's 4 older children are with parents every other weekend, and now baby girl. Parents deny any issues or concerns with housing at this time. Patient's parent/guardian status:? ?MOB states that she and FOB have been together for over 2 years, for 2. MOB states that they met each other at work and through mutual friends. While meeting with MOB privately she denies any concerns of domestic violence or intimate partner violence. baby is first baby parents have together. MOB has another child from a former relationship, and FOConstantine has 4 children from a former relationship. Medical History: ?LEN is 23 year old female who is 3, para 1- mow 2 following labor and delivery of . LEN received routine care during with [facility]. LEN presented to hospital for an induction of labor and delivered baby via vaginal delivery on 01/25/24 at 39 weeks gestation. Baby girl, named Diana, was born weighing 6lb 9oz and her apgars were 8 and 9 at one and five minutes of life, respectfully. LEN states that she is breast feeding and it is going well. Baby will be followed by Dr. Carlin for pediatrics. Educational Status:? Both parents graduated from high school, and attended the [employer] obtaining a vocational certificate. Parents deny any concerns of reading, learning and comprehension. Financial Status: Both parents are gainfully employed outside of the home. FOB states that he works for [employer]. FOB states that he is able to take off a couple of days of work now that baby has been born. MOB states that she is primarily a stay at home mom, but she does work parts clerk and is able to schedule work around what works best for their family. Infant Supplies:??Parents state that they have obtained all necessary baby supplies, including: car seat, safe sleep space, clothes, diapers and wipes. MOB states that she does have a breast pump. Childcare/Caregiver(s):? MOB states that she will be the primary caregiver to baby, along with FOB when he is not at work. Transportation:?? Parents have reliable means of transportation, no barriers at this time. Programs/Agencies Involved: ??MOB states that they are not connected to any financial supports at this time. MOB states that she is connected to Medicaid insurance through [employer] ([facility]). ? Children Services/Legal Issues:??No history noted, no issues or concerns warranting referral at this time. ? Behavioral Health Issues: ??Mental Health History: FOB states that he has never been officially diagnosed with anxiety or depression, however he has been prescribed zoloft. FOB states that this is from being anxious at work while dealing with stupidity . FOB states that he stopped taking the zoloft because he could not tell a difference. MOB states that she has been diagnosed with anxiety and an adjustment disorder. LEN states that she also believes that she experienced some baby blues or depression after her first daughter was born. MOB states that when her first daughter was born she was not in a healthy relationship. MOB states that her circumstances are different this time and she feels much more supported. LEN completed Sunbright Depression scale and her score was 8. LEN states that the past year has been extremely challenging. LEN reports that she had a court mcgee with her first daughter's dad, and that ended in February. MOB states that then her daughter's father of an overdose in June, and they moved in July. LEN states that her daughter then needed to have her tonsils and adenoids removed and now there is a baby. MOB states that a lot of her anxiety is a result of all the change that their family has gone through over the past year, and the guilt of how to help her 5 year old process everything. LEN states that her daughter is in counseling. ??? Substance Use History:?MOB denies substance use prior to and during . ? Family History:?Parents deny family history of addiction and significant mental health diagnoses. ? Drug Screens: ?No drug screens observed in chart review. ? Family/Social Stressors:?As mentioned above, MOB states that the family has been through a lot of trauma and changes over the past year. MOB states that her ex took her to court and there was a custody mcgee regarding their 5 year old daughter. MOB states that the court involvement ended in February. MOB states that in June her ex, her daughters dad, as a result of a drug overdose. MOB states that they had expected this to happen so it was not a shock to her, however this has been a big change for her 5 year old. LEN also states that the family moved in July and then her daughter needed surgery. Support Systems: Parents state that both sets of grandparents are supportive, but they do not live close. MOB states that they have a large friend group who is also supportive. Depression/Shaken Baby/Safe Sleeping:? Kael educated parents on signs and symptoms of baby blues and depression and anxiety. MOB states that she believes that if she were to struggle during her period that FOB would be able to recognize a change in her and would know how to support her. Kael educated parents on shaken baby prevention and ABCS of safe sleep. Parents express understanding. ASSESSMENT:? MOB and baby admitted following labor and delivery. MOB states that she has obtained everything she needs for baby and has supports in place. MOB was sitting in chair and made eye contact throughout completion of assessment. FOB was sitting on couch and made minimal eye contact with sw, body language was not supportive and he participated minimally during assessment. MOB states in private that she and FOB have good relationship and he is a support for her. Resources provided and literature on healthy and appropriate coping skills to utilize during period. PLAN:? MOB and baby to be discharged when medically ready. ?No other services requested or indicated. Jarred Aguilar, SURGICAL TECHNOLOGIST, MARINE SPECIALIST
== END 2024-01-26 15:55 | disposition home or self-care (01) | DRG 807 ==
PROVIDERS: Admitting Provider Advanced Practice Midwife; PCP Family Medicine; Visit Provider Advanced Practice Midwife
DX: O99.344 Other mental disorders complicating childbirth (principal); Z37.0 Single live birth; F43.22 Adjustment disorder with anxiety; Z3A.39 39 weeks gestation of pregnancy; Z87.59 Personal history of other complications of pregnancy, childbirth and the puerperium
CPT/HCPCS: 59025; 59050; 85025; 86780; 86850; 86900; 86901; 99221; J7120; G0378; J2405